=== PATIENT | female | born 1985 | race Caucasian/White ===

== ENCOUNTER 2016-05-22 22:22 | Emergency (ER) | payer OTHER ==
--- NOTE | 2016-05-23 00:07 | ED ORDER SUMMARY ---
..... Patient: MICHELLE HURTADO OrderSheet [facility] VisitID: [id number] [address] [place] [address] 31y, F Registration Date/Time: 05/22/2016 ORDER SHEET Weight: 56.6 kg Allergies: No Known Drug Allergy GENERAL ORDERS: Blood Culture (No) (N/A) Urgent (22:51 05/22/2016 HBivens A.R.N.P.) (Ack 22:55 JDeElena R.N.) (23:30 JRomanelli R.N.) CBC w Diff Urgent (22:51 05/22/2016 HBivens A.R.N.P.) (Ack 22:55 JDeElena R.N.) (22:59 JRomanelli R.N.) BMP Urgent (22:51 05/22/2016 HBivens A.R.N.P.) (Ack 22:55 JDeElena R.N.) (22:59 JRomanelli R.N.) Lactate, Serum Urgent (22:51 05/22/2016 HBivens A.R.N.P.) (Ack 22:55 JDeElena R.N.) (23:30 JRomanelli R.N.) MEDICATION ORDERS: K-Dur PO 40 meq (Do not crush or chew, NOW) (00:05 05/23/2016 HBivens A.R.N.P.) (0:53 JRomanelli R.N.) IV FLUIDS: Toradol IV 30 mg (NOW) (23:05 05/22/2016 HBivens A.R.N.P.) (1:19 JRomanelli R.N.) Ativan IV 2 mg (HIGH ALERT MEDICATION, NOW) (23:05 05/22/2016 HBivens A.R.N.P.) (23:32 JRomanelli R.N.) Ceftriaxone IV 1 gm/50mL (NOW) (23:05 05/22/2016 HBivens A.R.N.P.) (Cancelled: Other23:06 HBivens A.R.N.P.) IV Saline Lock (23:06 05/22/2016 JRomanelli R.N. verbal order read back to HBivens A.R.N.P.) (23:33 JRomanelli R.N.) IV NS : initial bolus 1000 mL (1000 mL/hr), then none - for X1 (NOW) (23:07 05/22/2016 HBivens A.R.N.P.) (Cancelled: Duplicate Order23:32 JRomanelli R.N.) Vancomycin IV 1 gm/200mL (NOW) (23:07 05/22/2016 HBivens A.R.N.P.) (0:56 JRomanelli R.N.) IV NS : initial bolus none -, then 1000 mL/hr (NOW) (23:08 05/22/2016 JRomanelli R.N. verbal order read back to HBivens A.R.N.P.) (23:46 JRomanelli R.N.) Ceftriaxone IV 1 gm/50mL (NOW) (23:40 05/22/2016 HBivens A.R.N.P.) (23:44 JRomanelli R.N.) ORDER SHEET NOTES: [Electronically signed by Francisco Lanza R.N. (01:49 05/23/2016)] [Electronically signed by Jess Roberts.R.N.P. (11:53 05/23/2016)] [Electronically locked/signed by Francisco Lanza R.N. (01:49 05/23/2016)]
--- NOTE | 2016-05-23 00:07 | ED CLINICAL REPORT ---
Clinical Report - Physicians/Mid Levels [facility] [address] [place] [address] 05/22/2016 22:23 Patient: MICHELLE HURTADO Time Seen: 2235; upon arrival, initial patient contact, initial documentation, patient care assumed. Arrived- Police present. Historian- patient. Evaluation limited noncompliance. History limited by poor cooperation, vague historian, intoxication and agitation. HISTORY OF PRESENT ILLNESS Chief Complaint: SKIN RASH and TENDER AREA. This started about 3 - 4 days ago and is still present. Not itchy or burning. It is described as painful. It has been located on the left hand. A cause has been identified (iv drug use). Similar symptoms previously: Frequently, as bad. Recent medical care: Not recently seen/assessed. REVIEW OF SYSTEMS No fever or difficulty breathing. She has had a sore throat. All systems otherwise negative, except as recorded above. PAST HISTORY See nurses notes. PROBLEMS: Mental Illness. Psychosis. Hypomagnesemia. Tonsillitis. Bipolar Disorder. Schizoaffective Disorder. Hep C treated with interferon. Substance Abuse. Hypoglycemia. Hypokalemia. Spontaneous (Miscarriage). Asthma. Anxiety Reaction. Sinusitis. Fever. Pharyngitis. --22:39 Francisco Lanza, R.N. ADDITIONAL SURGERIES: Appendectomy. --22:39 Francisco Lanza, R.N. SOCIAL HISTORY Heavy tobacco smoker. Occasional alcohol use. History of heavy IV drug use: heroin, marijuana. No recent travel. Is a local resident. FAMILY HISTORY Negative. ADDITIONAL NOTES The nursing notes have been reviewed with agreement regarding the chief complaint, HPI, ROS, PMH and patient medications and allergies. PHYSICAL EXAM Vital Signs: 05/22/2016 22:18 BP: 126/84. HR: 128. RR: 20. O2 saturation: 97%. Temp: 98.8 F. Pain level now: 7/10. Have been reviewed as abnormal and appear to be correct. Blood pressure normal. Tachycardic. Respiratory rate normal. Temperature normal. Oxygen saturation normal. Appearance: Alert. Oriented X3. No acute distress. Anxious. (pt extremely anxious, saying she wants to go home, she doesn't even want to stay for tx, talked pt into iv and blood work, as long as I didn't drug test her). Eyes: Pupils equal, round and reactive to light. Conjunctivae and eyelids normal. ENT: Ears normal. Nose normal. Pharynx normal. Neck: Neck supple. CVS: Normal heart rate and rhythm. Heart sounds normal. Respiratory: No respiratory distress. Breath sounds normal. Chest nontender. Abdomen: Nontender. No organomegaly. Skin: Skin warm and dry. Abnormal skin color. No rash. Normal skin turgor. Large area of cellulitis with tenderness, erythema and warmth to left hand (entire top of L hand including digits, and part of wrist). No lymphangitis. (multiple iv track dangelo noted on BUE). Extremities: Normal external inspection. Extremities nontender. Neuro: Oriented X 3. No motor deficit. No sensory deficit. LABS, X-RAYS, AND EKG Laboratory Tests: CBC w Diff: (KARRIE: 05/22/2016 22:50) ( MsgRcvd 05/22/2016 23:41) Final results Test Result Flag Units (Reference) WHITE BLOOD COUNT 27.3 *H K/uL (4.5-11.5) CRITICAL RESULTS CALLEDCalled to MARY 05/22/16 2314Were 2 patient identifiers used? YWas the result read back? Y RED BLOOD COUNT 4.47 M/uL (4.00-5.20) HEMOGLOBIN 13.2 gm/dL (12.0-16.0) HEMATOCRIT 38.8 % (36.0-46.0) MEAN CELL VOLUME 87 fL (80-100) MEAN CORPUSCULAR HGB 30 pg (26-34) MEAN CORPUSCULAR HGB CONC 34 g/dL (31-37) RED CELL DISTRIBUTION WIDTH 17.1 H % (11.6-14.8) PLATELET COUNT 377 K/uL (150-400) POLY % 82 H % (50-75) BAND % 0 % (0-8) LYMPH 12 L % (25-40) MONO 6 % (3-14) EOSINOPHIL % 0 % (0-4) BASOPHIL % 0 % (0-2) METAMYELOCYTE % 0 % (0-1) MYELOCYTE 0 % (0-1) OTHER CELL TYPE 0 Lactate, Serum: (KARRIE: 05/22/2016 23:00) ( ScgRcvd 05/22/2016 23:57) Final results Test Result Flag Units (Reference) LACTIC ACID 0.9 mmol/L (0.4-2.0) BMP: (KARRIE: 05/22/2016 22:50) ( MsgRcvd 05/22/2016 23:21) Final results Test Result Flag Units (Reference) GLUCOSE 101 mg/dL (70-110) BUN 17 mg/dL (7-18) CREATININE 1.1 mg/dL (0.6-1.3) Estimated GFR >60 mL/min Estimated GFR- >60 mL/min Note: Persistent reduction over 3 months in eGFR<60 mL/min/1.73 m2 defines CKD. Patients with eGFR values>=60 mL/min/1.73 m2 may also have CKD if evidence ofpersistent proteinuria. Additional information may be foundat www.kidney.org. SODIUM 141 mmol/L (136-145) POTASSIUM 3.1 L mmol/L (3.5-5.1) CHLORIDE 102 mmol/L (98-107) CARBON DIOXIDE 23 mmol/L (21-32) CALCIUM 8.9 mg/dL (8.5-10.1) . PROGRESS AND PROCEDURES Course of Care: 0. pt consistently coming out of room, pacing, anxious, demanding water and other stuff from staff, saying she is ready to go home, asking for klonopin and something for her nerves 2329. had discussion with pt re admit, pt refusing to stay for admission, doesn't want to stay for 2nd abx, encouraged to stay, pt again asking for klonopin 2349. pt again coming out of room, nurse assisting her back, encouraging to stay in room, pt almost pulling iv out by packing in room, pt still extremely anxious 0010. Dr Churchill at bedside assessing pt's hand, encouraging pt to stay, pt still refusing, pt was informed numerous times that she had bad infection, could lose the hand, or even could result if blood infection got worse, pt still refusing to stay, and claims she will return tomorrow for more abx, pt again asking for klonopin or something for her nerves 0020. area of erythema marked with skin pen, pt still refusing to stay, and asking how much longer for the abx to finish, she is ready to go, again asking for something for her nerves. Patient counseled in person regarding the patient's stable condition, diagnosis and need for admission. Differential Diagnosis: Other possible considerations: cellulitis, substance abuse, abscess, anxiety. Above considerations are based on history, physical exam and laboratory data. Differential diagnosis was discussed with patient. Disposition: Condition: good and stable. CLINICAL IMPRESSION Cellulitis of the left hand. Chronic substance abuse- marijuana, heroin with intoxication, delirium and anxiety. INSTRUCTIONS Warnings: Further evaluation is necessary in order to assess the possibility of serious illness. It is very important to follow up with a physician. GENERAL WARNINGS: Return or contact your physician immediately if your condition worsens or changes unexpectedly, if not improving as expected, or if other problems arise. Specifically return if problem worsens. Prescription Medications: Bactrim DS 800 mg / 160 mg: take 1 tablet orally every day for 10 days. No refill. Keflex 500 mg: take 1 capsule orally every 6 hours for 10 days. No refill. Motrin 800 mg tablets: take 1 tablet orally every 8 hours as needed for pain. Dispense thirty (30). No refills. Substitution is permissible. Follow-up: Follow up with your doctor tomorrow. Call for an appointment. Summary of care provided to patient. Understanding of the discharge instructions verbalized by patient. (Electronically signed by Jess Roberts A.R.N.P. 05/23/2016 11:53)
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
--- NOTE | 2016-05-23 00:07 | ED ORDER SUMMARY ---
..... Patient: MICHELLE HURTADO OrderSheet [facility] VisitID: [id number] [address] [place] [address] 31y, F Registration Date/Time: 05/22/2016 ORDER SHEET Weight: 56.6 kg Allergies: No Known Drug Allergy GENERAL ORDERS: Blood Culture (No) (N/A) Urgent (22:51 05/22/2016 HBivens A.R.N.P.) (Ack 22:55 JDeElena R.N.) (23:30 JRomanelli R.N.) CBC w Diff Urgent (22:51 05/22/2016 HBivens A.R.N.P.) (Ack 22:55 JDeElena R.N.) (22:59 JRomanelli R.N.) BMP Urgent (22:51 05/22/2016 HBivens A.R.N.P.) (Ack 22:55 JDeElena R.N.) (22:59 JRomanelli R.N.) Lactate, Serum Urgent (22:51 05/22/2016 HBivens A.R.N.P.) (Ack 22:55 JDeElena R.N.) (23:30 JRomanelli R.N.) MEDICATION ORDERS: K-Dur PO 40 meq (Do not crush or chew, NOW) (00:05 05/23/2016 HBivens A.R.N.P.) (0:53 JRomanelli R.N.) IV FLUIDS: Toradol IV 30 mg (NOW) (23:05 05/22/2016 HBivens A.R.N.P.) (1:19 JRomanelli R.N.) Ativan IV 2 mg (HIGH ALERT MEDICATION, NOW) (23:05 05/22/2016 HBivens A.R.N.P.) (23:32 JRomanelli R.N.) Ceftriaxone IV 1 gm/50mL (NOW) (23:05 05/22/2016 HBivens A.R.N.P.) (Cancelled: Other23:06 HBivens A.R.N.P.) IV Saline Lock (23:06 05/22/2016 JRomanelli R.N. verbal order read back to HBivens A.R.N.P.) (23:33 JRomanelli R.N.) IV NS : initial bolus 1000 mL (1000 mL/hr), then none - for X1 (NOW) (23:07 05/22/2016 HBivens A.R.N.P.) (Cancelled: Duplicate Order23:32 JRomanelli R.N.) Vancomycin IV 1 gm/200mL (NOW) (23:07 05/22/2016 HBivens A.R.N.P.) (0:56 JRomanelli R.N.) IV NS : initial bolus none -, then 1000 mL/hr (NOW) (23:08 05/22/2016 JRomanelli R.N. verbal order read back to HBivens A.R.N.P.) (23:46 JRomanelli R.N.) Ceftriaxone IV 1 gm/50mL (NOW) (23:40 05/22/2016 HBivens A.R.N.P.) (23:44 JRomanelli R.N.) ORDER SHEET NOTES: [Electronically signed by Francisco Lanza R.N. (01:49 05/23/2016)] [Electronically signed by Jess Roberts.R.N.P. (11:53 05/23/2016)] [Electronically locked/signed by Francisco Lanza R.N. (01:49 05/23/2016)]
--- NOTE | 2016-05-23 11:53 | ED DISCHARGE INSTRUCTIONS ---
Patient: MICHELLE HURTADO General Instructions [facility] VisitID: [id number] [place] [address] 31y, F Registration Date/Time: 05/22/2016 Cellulitis of the left hand. Chronic substance abuse- marijuana, heroin with intoxication, delirium and anxiety. INSTRUCTIONS Warnings: Further evaluation is necessary in order to assess the possibility of serious illness. It is very important to follow up with a physician. GENERAL WARNINGS: Return or contact your physician immediately if your condition worsens or changes unexpectedly, if not improving as expected, or if other problems arise. Specifically return if problem worsens. Prescription Medications: Bactrim DS 800 mg / 160 mg: take 1 tablet orally every day for 10 days. No refill. Keflex 500 mg: take 1 capsule orally every 6 hours for 10 days. No refill. Motrin 800 mg tablets: take 1 tablet orally every 8 hours as needed for pain. Dispense thirty (30). No refills. Substitution is permissible. Follow-up: Follow up with your doctor tomorrow. Call for an appointment. Summary of care provided to patient. Understanding of the discharge instructions verbalized by patient. ADDITIONAL INFORMATION Cellulitis You have an infection of the skin known as cellulitis. This usually starts with a scrape, cut, insect bite, blister or other opening in the skin which becomes infected. This is a serious condition. It must be watched closely to be sure the infection is not spreading. With antibiotic treatment, the size of the red area will gradually shrink in size until the skin returns to normal. This will take 7-10 days. The red area should never increase in size once the antibiotic medicine has been started. Occasionally, an infection will be resistant to one antibiotic and another one will have to be used. Home Care: 1) Limit the use of the affected part, since excess movement can cause the infection to spread. 2) If the infection is on your leg, walk as little as possible during the first few days of the treatment. Keep your leg elevated while sitting. This will reduce swelling. 3) Take all of the antibiotic medicine exactly as directed until it is gone. Be careful not to miss any doses, especially during the first seven days. Follow Up with your doctor or this facility as directed. Check the infected area daily for the warning signs listed below. Get Prompt Medical Attention if any of the following occur: -- Spreading area of redness -- Increasing swelling or pain -- Appearance of pus or drainage -- Fever over 100.4 F (38.0 C) oral, or over 101.4 F (38.6 C) rectal, after two days on antibiotics Staph Infection (MRSA) "Staph" is the short name for the common bacteria called "staphylococcus aureus". Staph bacteria are often present on the skin without causing an infection. If it gets under the skin an infection occurs. This causes redness, tenderness, swelling and sometimes fluid drainage. MRSA stands for "Methicillin-Resistant Staph Aureus". Unlike a common staph infection, MRSA bacteria are resistant to the usual antibiotics and harder to treat. Also, MRSA is more toxic than common staph bacteria. It can spread quickly throughout the body and cause a life-threatening illness. MRSA is spread to others by direct physical contact with the bacteria. MRSA can also be transmitted from items contaminated by a person who has the bacteria, such as bandages, towels, bed sheets, or sports equipment. It is not spread through the air. Once you have a MRSA skin infection, you are at risk of having it recur in the future. If MRSA infection is suspected, the doctor may take a wound culture to confirm the diagnosis. Any abscess will be drained. One or sometimes two antibiotics that work against MRSA will be prescribed. Home Care: 1) Take any antibiotics prescribed exactly as directed until they are gone. 2) Follow the same washing procedures as outlined for Household Members below. 3) Keep draining wounds covered with clean, dry bandages. Change dressings as they become soiled. 4) You and those in contact with you should wash their hands frequently with soap and warm water or use an alcohol-based hand pharmacist in charge. Do this after each time you change the bandage or touch the wound. 5) Avoid sharing personal items such as towels, washcloths, razors, clothing, or uniforms. Wash soiled sheets, towels or clothes in hot water with laundry detergent. Use an automatic clothes dryer set on high to kill any remaining bacteria. 6) Remove any artificial nails and nail maltese. 7) If you use a gym, wipe down equipment before and after each use. Treatment Of Household Members If you have been diagnosed with possible MRSA infection, those living with you are at higher risk of carrying the bacteria on their skin or in their nose, even if there is no sign of infection. Bacteria must be removed from the skin of all household members (including you) at the same time, so that it is not passed back and forth. Advise them to remove the bacteria as follows: Wash your whole body (scalp to toes) daily for five days with Hibiclens (chlorhexidine). Scrub fingernails with a brush for one minute twice a day. If any skin infections are present (boils, abscess, infected cut) these must be treated by a doctor. Washing alone will not treat a MRSA infection. Clean counter tops and children's toys; do not share personal items such as toothbrush and razors. It is okay to share glasses, plates, utensils. If antibiotic ointment was prescribed use it as directed. Follow Up with your doctor or as advised by our staff. If a wound culture was taken, call as directed in two days to obtain the results. If the culture result is positive for MRSA, tell medical personnel in the future that you were treated for this type of infection. Get Prompt Medical Attention if any of the following occur: -- Increasing redness, swelling or pain -- Red streaks in the skin around the wound -- Weakness or dizziness -- New appearance of pus or drainage from the wound -- New fever over 100.4 F (38.0 C) Drug Abuse Use and abuse of such drugs as marijuana, amphetamines (speed, crank), cocaine, heroin or prescription pain medicines (Vicodin, codeine), sedatives and sleeping pills (Valium, Klonopin), PCP, mescaline and LSD may lead to addiction or dependence. Once this occurs, you are at greater risk for any of the following: Craving for the drug and unable to stop using the drug even though you think you want to stop (psychological dependence) Drug withdrawal symptoms if you stop taking the drug (physical dependence) Loss of your job or your family Arrest, conviction and half-way sentence for possession of an illegal substance or for driving under the influence of such a substance Accidental injuries to yourself or others while you are under the influence of the drug (in a car or at home). HIV infection (much greater risk if you use IV drugs) Other sexually transmitted diseases (herpes, chlamydia, gonorrhea and others) Severe and fatal infection of the heart valves (if you use IV drugs) Stroke, heart attack, hepatitis B or C, kidney failure from overdose Home Care: Admit you have a drug problem. Ask for help from your family and close friends. Seek professional help. This could be in the form of individual psychotherapy or counseling or an outpatient, inpatient, or residential drug treatment program. Join a self-help group for drug abuse. Avoid friends who abuse drugs themselves or tempt you to continue abusing drugs. Eat a balanced diet and begin a regular exercise program. Follow Up with your doctor or as advised by our staff. Contact one of the resources below for help. National [place] on Alcoholism and Drug Dependence www.ncadd.org 729-431-FEFS Narcotics Anonymous www.na.org 909-702-4266 National Alcohol and Substance Abuse Information Center (for referral to treatment programs) www.Glopho 797-420-1908 Get Prompt Medical Attention if any of the following occur: Agitation, anxiety, unable to sleep Unintended weight loss (more than 10 to 15 pounds over 3 months) Seizure Chest pain Fever of 100.4F (38C) or higher, or as directed by your healthcare provider Excess drowsiness or inability to be awakened Shortness of breath Slow breathing under 8 breaths per minute Cough with colored sputum Redness, swelling or tenderness at an injection site Sulfamethoxazole, Trimethoprim Oral tablet What is this medicine? SULFAMETHOXAZOLE; TRIMETHOPRIM or SMX-TMP (suhl fuh meth OK justin zohl; trye METH oh prim) is a combination of a sulfonamide antibiotic and a second antibiotic, trimethoprim. It is used to treat or prevent certain kinds of bacterial infections. It will not work for colds, flu, or other viral infections. How should I use this medicine? Take this medicine by mouth with a full glass of water. Follow the directions on the prescription label. Take your medicine at regular intervals. Do not take it more often than directed. Do not skip doses or stop your medicine early. Talk to your soda dispenser regarding the use of this medicine in children. Special care may be needed. This medicine has been used in children as young as 2 months of age. What side effects may I notice from receiving this medicine? Side effects that you should report to your doctor or health career and guidance counselor as soon as possible: allergic reactions like skin rash or hives, swelling of the face, lips, or tongue breathing problems fever or chills, sore throat irregular heartbeat, chest pain joint or muscle pain pain or difficulty passing urine red pinpoint spots on skin redness, blistering, peeling or loosening of the skin, including inside the mouth unusual bleeding or bruising unusually weak or tired yellowing of the eyes or skin Side effects that usually do not require medical attention (report to your doctor or health career and guidance counselor if they continue or are bothersome): diarrhea dizziness headache loss of appetite nausea, vomiting nervousness What may interact with this medicine? Do not take this medicine with any of the following medications: aminobenzoate potassium dofetilide metronidazole This medicine may also interact with the following medications: TK inhibitors like benazepril, enalapril, lisinopril, and ramipril cyclosporine digoxin diuretics indomethacin medicines for diabetes methenamine methotrexate phenytoin potassium supplements pyrimethamine sulfinpyrazone tricyclic antidepressants warfarin What if I miss a dose? If you miss a dose, take it as soon as you can. If it is almost time for your next dose, take only that dose. Do not take double or extra doses. Where should I keep my medicine? Keep out of the reach of children. Store at room temperature between 20 to 25 degrees C (68 to 77 degrees F). Protect from light. Throw away any unused medicine after the expiration date. What should I tell my health care provider before I take this medicine? They need to know if you have any of these conditions: anemia asthma being treated with anticonvulsants if you frequently drink alcohol containing drinks kidney disease liver disease low level of folic acid or sjfxybc-[id number] dehydrogenase poor nutrition or malabsorption porphyria severe allergies thyroid disorder an unusual or allergic reaction to sulfamethoxazole, trimethoprim, sulfa drugs, other medicines, foods, dyes, or preservatives or trying to get breast-feeding What should I watch for while using this medicine? Tell your doctor or health career and guidance counselor if your symptoms do not improve. Drink several glasses of water a day to reduce the risk of kidney problems. Do not treat diarrhea with over the counter products. Contact your doctor if you have diarrhea that lasts more than 2 days or if it is severe and watery. This medicine can make you more sensitive to the sun. Keep out of the sun. If you cannot avoid being in the sun, wear protective clothing and use a sunscreen. Do not use sun lamps or tanning beds/booths. Cephalexin Monohydrate Oral tablet What is this medicine? CEPHALEXIN (sef a JAKE in) is a cephalosporin antibiotic. It is used to treat certain kinds of bacterial infections It will not work for colds, flu, or other viral infections. How should I use this medicine? Take this medicine by mouth with a full glass of water. Follow the directions on the prescription label. This medicine can be taken with or without food. Take your medicine at regular intervals. Do not take your medicine more often than directed. Take all of your medicine as directed even if you think you are better. Do not skip doses or stop your medicine early. Talk to your soda dispenser regarding the use of this medicine in children. While this drug may be prescribed for selected conditions, precautions do apply. What side effects may I notice from receiving this medicine? Side effects that you should report to your doctor or health career and guidance counselor as soon as possible: allergic reactions like skin rash, itching or hives, swelling of the face, lips, or tongue breathing problems pain or trouble passing urine redness, blistering, peeling or loosening of the skin, including inside the mouth severe or watery diarrhea unusually weak or tired yellowing of the eyes, skin Side effects that usually do not require medical attention (report to your doctor or health career and guidance counselor if they continue or are bothersome): gas or heartburn genital or anal irritation headache joint or muscle pain nausea, vomiting What may interact with this medicine? probenecid some other antibiotics What if I miss a dose? If you miss a dose, take it as soon as you can. If it is almost time for your next dose, take only that dose. Do not take double or extra doses. There should be at least 4 to 6 hours between doses. Where should I keep my medicine? Keep out of the reach of children. Store at room temperature between 59 and 86 degrees F (15 and 30 degrees C). Throw away any unused medicine after the expiration date. What should I tell my health care provider before I take this medicine? They need to know if you have any of these conditions: kidney disease stomach or intestine problems, especially colitis an unusual or allergic reaction to cephalexin, other cephalosporins, penicillins, other antibiotics, medicines, foods, dyes or preservatives or trying to get breast-feeding What should I watch for while using this medicine? Tell your doctor or health career and guidance counselor if your symptoms do not begin to improve in a few days. Do not treat diarrhea with over the counter products. Contact your doctor if you have diarrhea that lasts more than 2 days or if it is severe and watery. If you have diabetes, you may get a false-positive result for sugar in your urine. Check with your doctor or health career and guidance counselor. Ibuprofen Oral tablet What is this medicine? IBUPROFEN (eye BYOO proe fen) is a non-steroidal anti-inflammatory drug (NSAID). It is used for dental pain, fever, headaches or migraines, osteoarthritis, rheumatoid arthritis, or painful monthly periods. It can also relieve minor aches and pains caused by a cold, flu, or sore throat. How should I use this medicine? Take this medicine by mouth with a glass of water. Follow the directions on the prescription label. Take this medicine with food if your stomach gets upset. Try to not lie down for at least 10 minutes after you take the medicine. Take your medicine at regular intervals. Do not take your medicine more often than directed. A special MedGuide will be given to you by the pharmacist with each prescription and refill. Be sure to read this information carefully each time. Talk to your soda dispenser regarding the use of this medicine in children. Special care may be needed. What side effects may I notice from receiving this medicine? Side effects that you should report to your doctor or health career and guidance counselor as soon as possible: allergic reactions like skin rash, itching or hives, swelling of the face, lips, or tongue black or bloody stools, blood in the urine or in vomit breathing problems changes in vision chest pain general ill feeling or flu-like symptoms nausea or vomiting redness, blistering, peeling or loosening of the skin, including inside the mouth slurred speech or weakness on one side of the body stomach pain unexplained weight gain or swelling unusually weak or tired yellowing of eyes or skin Side effects that usually do not require medical attention (report to your doctor or health career and guidance counselor if they continue or are bothersome): constipation or diarrhea dizziness gas or heartburn stomach upset What may interact with this medicine? Do not take this medicine with any of the following medications: cidofovir ketorolac methotrexate pemetrexed This medicine may also interact with the following medications: alcohol aspirin diuretics lithium other drugs for inflammation like prednisone warfarin What if I miss a dose? If you miss a dose, take it as soon as you can. If it is almost time for your next dose, take only that dose. Do not take double or extra doses. Where should I keep my medicine? Keep out of the reach of children. Store at room temperature between 15 and 30 degrees C (59 and 86 degrees F). Keep container tightly closed. Throw away any unused medicine after the expiration date. What should I tell my health care provider before I take this medicine? They need to know if you have any of these conditions: asthma cigarette smoker drink more than 3 alcohol containing drinks a day heart disease or circulation problems such as heart failure or leg edema (fluid retention) high blood pressure kidney disease liver disease stomach bleeding or ulcers an unusual or allergic reaction to ibuprofen, aspirin, other NSAIDS, other medicines, foods, dyes, or preservatives or trying to get breast-feeding What should I watch for while using this medicine? Tell your doctor or healthcare professional if your symptoms do not start to get better or if they get worse. This medicine does not prevent heart attack or stroke. In fact, this medicine may increase the chance of a heart attack or stroke. The chance may increase with longer use of this medicine and in people who have heart disease. If you take aspirin to prevent heart attack or stroke, talk with your doctor or health career and guidance counselor. Do not take other medicines that contain aspirin, ibuprofen, or naproxen with this medicine. Side effects such as stomach upset, nausea, or ulcers may be more likely to occur. Many medicines available without a prescription should not be taken with this medicine. This medicine can cause ulcers and bleeding in the stomach and intestines at any time during treatment. Ulcers and bleeding can happen without warning symptoms and can cause . To reduce your risk, do not smoke cigarettes or drink alcohol while you are taking this medicine. You may get drowsy or dizzy. Do not drive, use machinery, or do anything that needs mental alertness until you know how this medicine affects you. Do not stand or sit up quickly, especially if you are an older patient. This reduces the risk of dizzy or fainting spells. This medicine can cause you to bleed more easily. Try to avoid damage to your teeth and gums when you brush or floss your teeth. You have been given the following additional information: Cellulitis MRSA Skin Infection, Suspected Or Confirmed Drug Abuse Sulfamethoxazole, Trimethoprim Oral tablet Cephalexin Monohydrate Oral tablet Ibuprofen Oral tablet (Electronically signed by Jess Roberts A.R.N.P. 05/23/2016 11:53)
--- NOTE | 2016-05-23 11:54 | ED MAR SUMMARY ---
..... Medication Administration Record [facility] [address] [place] [address] Patient: MICHELLE HURTADO Visit ID: [id number] 31y, F Weight: 56.6 kg Height/Length: 61 in BMI: 23.6 ALLERGIES: No Known Drug Allergy Given 23:22 05/22/2016 Francisco Lanza R.N. Medication Administered: ATIVAN [IVP] (LORAZEPAM), Dose: 2 mg IVP over 2 minute(s), Site: #1 right upper arm. Medication Ordered: Ativan IV 2 mg (HIGH ALERT MEDICATION, NOW). Given 23:30 05/22/2016 Francisco Lanza R.N. Medication Administered: TORADOL [IVP], Dose: 30 mg IVP over 2 minute(s), Site: #1 right upper arm. Medication Ordered: Toradol IV 30 mg (NOW). Start 23:31 05/22/2016 Francisco Lanza R.N. Medication Administered: IV NS (SALINE), Dose: IV Fluids over 60 minute(s), Rate: 1000 mL/hr, Dispensed: 1000 mL bag, Site: #1 right upper arm. Medication Ordered: IV NS : initial bolus none -, then 1000 mL/hr (NOW). Start 23:34 05/22/2016 Francisco Lanza R.N., Stop 23:59 05/22/2016 Francisco Lanza R.N. Medication Administered: CEFTRIAXONE [IVPB], Dose: 1 gm IVPB over 2 minute(s), Rate: 100 mL/hr, Dispensed: 50 mL bag, Site: #1 right upper arm. Medication Ordered: Ceftriaxone IV 1 gm/50mL (NOW). Start 00:01 05/23/2016 Francisco Lanza R.N., Stop 01:07 05/23/2016 Luis F Griffith R.N. Medication Administered: VANCOMYCIN [IVPB], Dose: 1 gm IVPB over 60 minute(s), Rate: 200 mL/hr, Dispensed: 200 mL bag, Site: #1 right upper arm. Medication Ordered: Vancomycin IV 1 gm/200mL (NOW). Start 00:05 05/23/2016 Francisco Lanza R.N. Medication Administered: IV NS (SALINE), Dose: IV Fluids over 60 minute(s), Rate: 250 mL/hr, Dispensed: 250 mL bag, Site: #1 right upper arm. Medication Ordered: IV NS : initial bolus none -, then 1000 mL/hr (NOW). Given 00:48 05/23/2016 Francisco Lanza R.N. Medication Administered: K-DUR [PO] (POTASSIUM CHLORIDE OSCAR ER), Dose: 40 meq Tablets PO. Medication Ordered: K-Dur PO 40 meq (Do not crush or chew, NOW).
--- NOTE | 2016-05-23 11:54 | ED MAR SUMMARY ---
..... Medication Administration Record [facility] [address] [place] [address] Patient: MICHELLE HURTADO Visit ID: [id number] 31y, F Weight: 56.6 kg Height/Length: 61 in BMI: 23.6 ALLERGIES: No Known Drug Allergy Given 23:22 05/22/2016 Francisco Lanza R.N. Medication Administered: ATIVAN [IVP] (LORAZEPAM), Dose: 2 mg IVP over 2 minute(s), Site: #1 right upper arm. Medication Ordered: Ativan IV 2 mg (HIGH ALERT MEDICATION, NOW). Given 23:30 05/22/2016 Francisco Lanza R.N. Medication Administered: TORADOL [IVP], Dose: 30 mg IVP over 2 minute(s), Site: #1 right upper arm. Medication Ordered: Toradol IV 30 mg (NOW). Start 23:31 05/22/2016 Francisco Lanza R.N. Medication Administered: IV NS (SALINE), Dose: IV Fluids over 60 minute(s), Rate: 1000 mL/hr, Dispensed: 1000 mL bag, Site: #1 right upper arm. Medication Ordered: IV NS : initial bolus none -, then 1000 mL/hr (NOW). Start 23:34 05/22/2016 Francisco Lanza R.N., Stop 23:59 05/22/2016 Francisco Lanza R.N. Medication Administered: CEFTRIAXONE [IVPB], Dose: 1 gm IVPB over 2 minute(s), Rate: 100 mL/hr, Dispensed: 50 mL bag, Site: #1 right upper arm. Medication Ordered: Ceftriaxone IV 1 gm/50mL (NOW). Start 00:01 05/23/2016 Francisco Lanza R.N., Stop 01:07 05/23/2016 Luis F Griffith R.N. Medication Administered: VANCOMYCIN [IVPB], Dose: 1 gm IVPB over 60 minute(s), Rate: 200 mL/hr, Dispensed: 200 mL bag, Site: #1 right upper arm. Medication Ordered: Vancomycin IV 1 gm/200mL (NOW). Start 00:05 05/23/2016 Francisco Lanza R.N. Medication Administered: IV NS (SALINE), Dose: IV Fluids over 60 minute(s), Rate: 250 mL/hr, Dispensed: 250 mL bag, Site: #1 right upper arm. Medication Ordered: IV NS : initial bolus none -, then 1000 mL/hr (NOW). Given 00:48 05/23/2016 Francisco Lanza R.N. Medication Administered: K-DUR [PO] (POTASSIUM CHLORIDE OSCAR ER), Dose: 40 meq Tablets PO. Medication Ordered: K-Dur PO 40 meq (Do not crush or chew, NOW).
--- NOTE | 2016-05-23 11:54 | ED MED RECONCILIATION SUMMARY ---
Patient: MICHELLE HURTADO Medication Reconciliation Report [facility] VisitID: [id number] [address] [place] [address] 31y, F Registration Date/Time: 05/22/2016 Weight: 56.6 kg Height/Length: 61 in. BMI: 23.6 ALLERGIES: No Known Drug Allergy The patient's Home Medications are listed below: THE FOLLOWING MEDICATIONS NEED TO BE RECONCILED: HydrOXYzine HCl Oral 25 mg KlonoPIN Oral Neurontin Oral 300 mg, 3x a day SEROquel Oral 300 mg, at bedtime The source(s) of the original Home Medication information: patient The following Medications were given to the patient in the Emergency Department: Ativan [IVP] IVP 2 mg, administered: 05/22/2016 11:22:00 PM Ceftriaxone [IVPB] IVPB bolus 0, then 1 gm 100 mL/hr, administered: 05/22/2016 11:34:00 PM IV NS IV Fluids bolus 0, then 1000 mL/hr, administered: 05/22/2016 11:31:00 PM IV NS IV Fluids bolus 0, then 250 mL/hr, administered: 05/23/2016 12:05:00 AM K-DUR [PO] PO 40 meq, administered: 05/23/2016 12:48:00 AM Vancomycin [IVPB] IVPB bolus 0, then 1 gm 200 mL/hr, administered: 05/23/2016 12:01:00 AM Toradol [IVP] IVP 30 mg, administered: 05/22/2016 11:30:00 PM The following Medications were prescribed to the patient: Bactrim DS 800 mg / 160 mg: take 1 tablet orally every day for 10 days. No refill. -- Jess Roberts A.R.N.P. Keflex 500 mg: take 1 capsule orally every 6 hours for 10 days. No refill. -- Jess Roberts A.R.N.P. Motrin 800 mg tablets: take 1 tablet orally every 8 hours as needed for pain. Dispense thirty (30). No refills. Substitution is permissible. -- Jess Roberts A.R.N.P.
--- NOTE | 2016-05-23 11:54 | ED MED RECONCILIATION SUMMARY ---
Patient: MICHELLE HURTADO Medication Reconciliation Report [facility] VisitID: [id number] [address] [place] [address] 31y, F Registration Date/Time: 05/22/2016 Weight: 56.6 kg Height/Length: 61 in. BMI: 23.6 ALLERGIES: No Known Drug Allergy The patient's Home Medications are listed below: THE FOLLOWING MEDICATIONS NEED TO BE RECONCILED: HydrOXYzine HCl Oral 25 mg KlonoPIN Oral Neurontin Oral 300 mg, 3x a day SEROquel Oral 300 mg, at bedtime The source(s) of the original Home Medication information: patient The following Medications were given to the patient in the Emergency Department: Ativan [IVP] IVP 2 mg, administered: 05/22/2016 11:22:00 PM Ceftriaxone [IVPB] IVPB bolus 0, then 1 gm 100 mL/hr, administered: 05/22/2016 11:34:00 PM IV NS IV Fluids bolus 0, then 1000 mL/hr, administered: 05/22/2016 11:31:00 PM IV NS IV Fluids bolus 0, then 250 mL/hr, administered: 05/23/2016 12:05:00 AM K-DUR [PO] PO 40 meq, administered: 05/23/2016 12:48:00 AM Vancomycin [IVPB] IVPB bolus 0, then 1 gm 200 mL/hr, administered: 05/23/2016 12:01:00 AM Toradol [IVP] IVP 30 mg, administered: 05/22/2016 11:30:00 PM The following Medications were prescribed to the patient: Bactrim DS 800 mg / 160 mg: take 1 tablet orally every day for 10 days. No refill. -- Jess Roberts A.R.N.P. Keflex 500 mg: take 1 capsule orally every 6 hours for 10 days. No refill. -- Jess Roberts A.R.N.P. Motrin 800 mg tablets: take 1 tablet orally every 8 hours as needed for pain. Dispense thirty (30). No refills. Substitution is permissible. -- Jess Roberts A.R.N.P.
== END 2016-05-23 01:10 | disposition home or self-care (01) ==
LOC: ED SRH 22:22
DX: L03.114 Cellulitis of left upper limb (principal); F11.121 Opioid abuse with intoxication delirium; F11.188 Opioid abuse with other opioid-induced disorder; F12.10 Cannabis abuse, uncomplicated; F17.210 Nicotine dependence, cigarettes, uncomplicated
CPT/HCPCS: 90047; 90065; 91643; 92031; 95059

== ENCOUNTER 2016-06-01 07:13 | Emergency (ER) | payer OTHER ==
--- NOTE | 2016-06-02 03:30 | ED ORDER SUMMARY ---
..... Patient: MICHELLE HURTADO OrderSheet [facility] VisitID: [id number] [place] [address] 31y, F Registration Date/Time: 06/01/2016 ORDER SHEET Weight: 54.4 kg (estimated) Allergies: No Known Drug Allergy GENERAL ORDERS: - (four point restraints) (07:30 [facility]01[facility]2016 [facility] (7:50 SBalde R.N.) (Ack 7:50 LNations ER Tech1) CBC w Diff Urgent (07:06/01/2016 [facility] (Ack 7:50 LNations ER Tech1) (8:38 SBalde R.N.) CMP Urgent (:06/01/2016 [facility] (Ack 7:50 LNations ER Tech1) (8:38 SBalde R.N.) UA-Culture if indicated Urgent (:06/01/2016 [facility] (Ack 7:50 LNations ER Tech1) (8:38 SBalde R.N.) Urine Urgent (07:06/01/2016 [facility] (Ack 7:50 LNations ER Tech1) (8:38 SBalde R.N.) Urine Drug Screen Urgent (07:06/01/2016 [facility]) (Ack 7:50 LNations ER Tech1) (8:38 SBalde R.N.) BNP Urgent (07:06/01/2016 PHalchinson DO) (Ack 7:51 LNations ER Tech1) (8:38 SBalde R.N.) PT with INR Urgent (07:06/01/2016 [facility]) (Ack 7:51 LNations ER Tech1) (8:38 SBalde R.N.) Ethyl Alcohol Urgent (10:54 06/01/2016 [facility] (Ack 10:57 LNations ER Tech1) (11:41 LNations ER Tech1) Diet (Please order in [employer]) (Regular Diet) (12:28 06/01/2016 LNations ER Tech1 verbal order read back to Adrienne Light) (12:30 LNations ER Tech1) EKG - ER Stat (17:39 06/01/2016 Adrienne Light) (17:49 NHouse ER Tech1) Magnesium Urgent (21:22 06/01/2016 Duane WARREN) (21:26 [facility] ER Ankle Patch Molder) Blood Culture (No) (N/A) (reportedly she did not fill her prescription) Urgent (23:10 06/01/2016 Duane WARREN) (23:32 [facility] ER Ankle Patch Molder) MEDICATION ORDERS: ZyPREXA Zydis ODT PO 5 mg (NOW) (08:40 06/01/2016 Opal BALBUENA) (8:42 SBalde R.N.) Clindamycin PO 300 mg (NOW) (12:23 06/01/2016 Adrienne Light) (12:41 SBalde R.N.) Haldol IM 5 mg (HIGH ALERT MEDICATION, NOW) (12:55 06/01/2016 Adrienne Light) (Ack 13:18 SBalde R.N.) (18:18 SBalde R.N.) Ativan IM 2 mg (HIGH ALERT MEDICATION, NOW) (17:39 06/01/2016 Adrienne Light) (18:24 SBalde R.N.) Bactrim DS PO (Tablet 800-160 mg) 1 tab (NOW) (03:25 06/02/2016 Duane WARREN) (Ack 3:36 JQuivey R.N.) (3:58 JQuivey R.N.) IV FLUIDS: IV NS : initial bolus 1000 mL (1000 mL/hr), then 200 mL/hr for X5 (NOW) (07:29 06/01/2016 Opal BALBUENA) (Ack 7:50 SBalde R.N.) (Cancelled: Unable to obtain IV access 3:08 JQuivey R.N.) ORDER SHEET NOTES: [Electronically signed by Francisco Che R.N. (04:54 06/02/2016)] [Electronically signed by Polo Hernandez MD (11:49 06/10/2016)] [Electronically locked/signed by Francisco Che R.N. (04:54 06/02/2016)]
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
--- NOTE | 2016-06-02 03:30 | ED ORDER SUMMARY ---
..... Patient: MICHELLE HURTADO OrderSheet [facility] VisitID: [id number] [place] [address] 31y, F Registration Date/Time: 06/01/2016 ORDER SHEET Weight: 54.4 kg (estimated) Allergies: No Known Drug Allergy GENERAL ORDERS: - (four point restraints) (07:30 [facility]2016 [facility] (7:50 SBalde R.N.) (Ack 7:50 LNations ER Tech1) CBC w Diff Urgent (07:06/01/2016 [facility] (Ack 7:50 LNations ER Tech1) (8:38 SBalde R.N.) [facility] (Ack 7:50 LNations ER Tech1) (8:38 SBalde R.N.) UA-Culture if indicated Urgent (:06/01/2016 [facility] (Ack 7:50 LNations ER Tech1) (8:38 SBalde R.N.) Urine Urgent (07:06/01/2016 [facility]) (Ack 7:50 LNations ER Tech1) (8:38 SBalde R.N.) Urine Drug Screen Urgent (07:06/01/2016 [facility]) (Ack 7:50 LNations ER Tech1) (8:38 SBalde R.N.) BNP Urgent (07:06/01/2016 PHpachinson DO) (Ack 7:51 LNations ER Tech1) (8:38 SBalde R.N.) PT with INR Urgent (07:06/01/2016 [facility] (Ack 7:51 LNations ER Tech1) (8:38 SBalde R.N.) Ethyl Alcohol Urgent (10:54 06/01/2016 [facility]) (Ack 10:57 LNations ER Tech1) (11:41 LNations ER Tech1) Diet (Please order in [employer]) (Regular Diet) (12:28 06/01/2016 LNations ER Tech1 verbal order read back to Adrienne Light) (12:30 LNations ER Tech1) EKG - ER Stat (17:39 06/01/2016 Adrienne Light) (17:49 NHouse ER Tech1) Magnesium Urgent (21:22 06/01/2016 Duane WARREN) (21:26 [facility] ER Welding Machine Operator Electron Beam) Blood Culture (No) (N/A) (reportedly she did not fill her prescription) Urgent (23:10 06/01/2016 Duane WARREN) (23:32 [facility] ER Welding Machine Operator Electron Beam) MEDICATION ORDERS: ZyPREXA Zydis ODT PO 5 mg (NOW) (08:40 06/01/2016 Opal BALBUENA) (8:42 SBalde R.N.) Clindamycin PO 300 mg (NOW) (12:23 06/01/2016 Adrienne Light) (12:41 SBalde R.N.) Haldol IM 5 mg (HIGH ALERT MEDICATION, NOW) (12:55 06/01/2016 Adrienne Light) (Ack 13:18 SBalde R.N.) (18:18 SBalde R.N.) Ativan IM 2 mg (HIGH ALERT MEDICATION, NOW) (17:39 06/01/2016 Adrienne Light) (18:24 SBalde R.N.) Bactrim DS PO (Tablet 800-160 mg) 1 tab (NOW) (03:25 06/02/2016 Duane WARREN) (Ack 3:36 JQuivey R.N.) (3:58 JQuivey R.N.) IV FLUIDS: IV NS : initial bolus 1000 mL (1000 mL/hr), then 200 mL/hr for X5 (NOW) (07:29 06/01/2016 Opal BALBUENA) (Ack 7:50 SBalde R.N.) (Cancelled: Unable to obtain IV access 3:08 JQuivey R.N.) ORDER SHEET NOTES: [Electronically signed by Francisco Che R.N. (04:54 06/02/2016)] [Electronically signed by Polo Hernandez MD (11:49 06/10/2016)] [Electronically locked/signed by Francisco Che R.N. (04:54 06/02/2016)]
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
--- NOTE | 2016-06-10 11:49 | ED DISCHARGE INSTRUCTIONS ---
Patient: MICHELLE HURTADO General Instructions [facility] VisitID: [id number] [address], [place] [address] 31y, F Registration Date/Time: 06/01/2016 Adverse drug reaction. (QT prolongation likely due to haloperidol). 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 Abnormal liver function test: AST/SGOT, ALT/SGPT and alkaline phosphatase. Mild leukocytosis. No bandemia. Cellulitis of the left hand. INSTRUCTIONS Stay with responsible adult family member (or other responsible adult). Warnings: Further evaluation is necessary. GENERAL WARNINGS: Return or contact your physician immediately if your condition worsens or changes unexpectedly, if not improving as expected, or if other problems arise. Your Current Medications: CONTINUE TAKING THE FOLLOWING MEDICATIONS: HydrOXYzine HCl Oral : 25 mg, prn. KlonoPIN Oral. Neurontin Oral : 300 mg 3x a day. SEROquel Oral : 300 mg at bedtime. Prescription Medications: Bactrim DS 800 mg / 160 mg: take 1 tablet orally every 12 hours for 10 days. No refill. Substitution is permissible. Understanding of the discharge instructions verbalized by patient. Follow-up with: [facility], , , [address], [place], [id number] Follow up tomorrow. Call for the next available appointment. ADDITIONAL INFORMATION Cellulitis You have an infection of the skin known as cellulitis. This usually starts with a scrape, cut, insect bite, blister or other opening in the skin which becomes infected. This is a serious condition. It must be watched closely to be sure the infection is not spreading. With antibiotic treatment, the size of the red area will gradually shrink in size until the skin returns to normal. This will take 7-10 days. The red area should never increase in size once the antibiotic medicine has been started. Occasionally, an infection will be resistant to one antibiotic and another one will have to be used. Home Care: 1) Limit the use of the affected part, since excess movement can cause the infection to spread. 2) If the infection is on your leg, walk as little as possible during the first few days of the treatment. Keep your leg elevated while sitting. This will reduce swelling. 3) Take all of the antibiotic medicine exactly as directed until it is gone. Be careful not to miss any doses, especially during the first seven days. Follow Up with your doctor or this facility as directed. Check the infected area daily for the warning signs listed below. Get Prompt Medical Attention if any of the following occur: -- Spreading area of redness -- Increasing swelling or pain -- Appearance of pus or drainage -- Fever over 100.4 F (38.0 C) oral, or over 101.4 F (38.6 C) rectal, after two days on antibiotics Sulfamethoxazole, Trimethoprim Oral tablet What is this medicine? SULFAMETHOXAZOLE; TRIMETHOPRIM or SMX-TMP (suhl fuh meth OK justin zohl; trye METH oh prim) is a combination of a sulfonamide antibiotic and a second antibiotic, trimethoprim. It is used to treat or prevent certain kinds of bacterial infections. It will not work for colds, flu, or other viral infections. How should I use this medicine? Take this medicine by mouth with a full glass of water. Follow the directions on the prescription label. Take your medicine at regular intervals. Do not take it more often than directed. Do not skip doses or stop your medicine early. Talk to your manager r d regarding the use of this medicine in children. Special care may be needed. This medicine has been used in children as young as 2 months of age. What side effects may I notice from receiving this medicine? Side effects that you should report to your doctor or health chronic care nurse as soon as possible: allergic reactions like skin rash or hives, swelling of the face, lips, or tongue breathing problems fever or chills, sore throat irregular heartbeat, chest pain joint or muscle pain pain or difficulty passing urine red pinpoint spots on skin redness, blistering, peeling or loosening of the skin, including inside the mouth unusual bleeding or bruising unusually weak or tired yellowing of the eyes or skin Side effects that usually do not require medical attention (report to your doctor or health chronic care nurse if they continue or are bothersome): diarrhea dizziness headache loss of appetite nausea, vomiting nervousness What may interact with this medicine? Do not take this medicine with any of the following medications: aminobenzoate potassium dofetilide metronidazole This medicine may also interact with the following medications: TK inhibitors like benazepril, enalapril, lisinopril, and ramipril cyclosporine digoxin diuretics indomethacin medicines for diabetes methenamine methotrexate phenytoin potassium supplements pyrimethamine sulfinpyrazone tricyclic antidepressants warfarin What if I miss a dose? If you miss a dose, take it as soon as you can. If it is almost time for your next dose, take only that dose. Do not take double or extra doses. Where should I keep my medicine? Keep out of the reach of children. Store at room temperature between 20 to 25 degrees C (68 to 77 degrees F). Protect from light. Throw away any unused medicine after the expiration date. What should I tell my health care provider before I take this medicine? They need to know if you have any of these conditions: anemia asthma being treated with anticonvulsants if you frequently drink alcohol containing drinks kidney disease liver disease low level of folic acid or [id number] dehydrogenase poor nutrition or malabsorption porphyria severe allergies thyroid disorder an unusual or allergic reaction to sulfamethoxazole, trimethoprim, sulfa drugs, other medicines, foods, dyes, or preservatives or trying to get breast-feeding What should I watch for while using this medicine? Tell your doctor or health chronic care nurse if your symptoms do not improve. Drink several glasses of water a day to reduce the risk of kidney problems. Do not treat diarrhea with over the counter products. Contact your doctor if you have diarrhea that lasts more than 2 days or if it is severe and watery. This medicine can make you more sensitive to the sun. Keep out of the sun. If you cannot avoid being in the sun, wear protective clothing and use a sunscreen. Do not use sun lamps or tanning beds/booths. You have been given the following additional information: Cellulitis Sulfamethoxazole, Trimethoprim Oral tablet Stay with responsible adult family member (or other responsible adult). (Electronically signed by Polo Hernandez MD 06/10/2016 11:49)
--- NOTE | 2016-06-10 11:49 | ED DISCHARGE INSTRUCTIONS ---
Patient: MICHELLE HURTADO General Instructions [facility] VisitID: [id number] [address], [place] [address] 31y, F Registration Date/Time: 06/01/2016 Adverse drug reaction. (QT prolongation likely due to haloperidol). 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 Abnormal liver function test: AST/SGOT, ALT/SGPT and alkaline phosphatase. Mild leukocytosis. No bandemia. Cellulitis of the left hand. INSTRUCTIONS Stay with responsible adult family member (or other responsible adult). Warnings: Further evaluation is necessary. GENERAL WARNINGS: Return or contact your physician immediately if your condition worsens or changes unexpectedly, if not improving as expected, or if other problems arise. Your Current Medications: CONTINUE TAKING THE FOLLOWING MEDICATIONS: HydrOXYzine HCl Oral : 25 mg, prn. KlonoPIN Oral. Neurontin Oral : 300 mg 3x a day. SEROquel Oral : 300 mg at bedtime. Prescription Medications: Bactrim DS 800 mg / 160 mg: take 1 tablet orally every 12 hours for 10 days. No refill. Substitution is permissible. Understanding of the discharge instructions verbalized by patient. Follow-up with: [facility], , , [address], [place], [address] Follow up tomorrow. Call for the next available appointment. ADDITIONAL INFORMATION Cellulitis You have an infection of the skin known as cellulitis. This usually starts with a scrape, cut, insect bite, blister or other opening in the skin which becomes infected. This is a serious condition. It must be watched closely to be sure the infection is not spreading. With antibiotic treatment, the size of the red area will gradually shrink in size until the skin returns to normal. This will take 7-10 days. The red area should never increase in size once the antibiotic medicine has been started. Occasionally, an infection will be resistant to one antibiotic and another one will have to be used. Home Care: 1) Limit the use of the affected part, since excess movement can cause the infection to spread. 2) If the infection is on your leg, walk as little as possible during the first few days of the treatment. Keep your leg elevated while sitting. This will reduce swelling. 3) Take all of the antibiotic medicine exactly as directed until it is gone. Be careful not to miss any doses, especially during the first seven days. Follow Up with your doctor or this facility as directed. Check the infected area daily for the warning signs listed below. Get Prompt Medical Attention if any of the following occur: -- Spreading area of redness -- Increasing swelling or pain -- Appearance of pus or drainage -- Fever over 100.4 F (38.0 C) oral, or over 101.4 F (38.6 C) rectal, after two days on antibiotics Sulfamethoxazole, Trimethoprim Oral tablet What is this medicine? SULFAMETHOXAZOLE; TRIMETHOPRIM or SMX-TMP (suhl fuh meth OK justin zohl; trye METH oh prim) is a combination of a sulfonamide antibiotic and a second antibiotic, trimethoprim. It is used to treat or prevent certain kinds of bacterial infections. It will not work for colds, flu, or other viral infections. How should I use this medicine? Take this medicine by mouth with a full glass of water. Follow the directions on the prescription label. Take your medicine at regular intervals. Do not take it more often than directed. Do not skip doses or stop your medicine early. Talk to your pool coordinator regarding the use of this medicine in children. Special care may be needed. This medicine has been used in children as young as 2 months of age. What side effects may I notice from receiving this medicine? Side effects that you should report to your doctor or health health care marketing manager as soon as possible: allergic reactions like skin rash or hives, swelling of the face, lips, or tongue breathing problems fever or chills, sore throat irregular heartbeat, chest pain joint or muscle pain pain or difficulty passing urine red pinpoint spots on skin redness, blistering, peeling or loosening of the skin, including inside the mouth unusual bleeding or bruising unusually weak or tired yellowing of the eyes or skin Side effects that usually do not require medical attention (report to your doctor or health health care marketing manager if they continue or are bothersome): diarrhea dizziness headache loss of appetite nausea, vomiting nervousness What may interact with this medicine? Do not take this medicine with any of the following medications: aminobenzoate potassium dofetilide metronidazole This medicine may also interact with the following medications: TK inhibitors like benazepril, enalapril, lisinopril, and ramipril cyclosporine digoxin diuretics indomethacin medicines for diabetes methenamine methotrexate phenytoin potassium supplements pyrimethamine sulfinpyrazone tricyclic antidepressants warfarin What if I miss a dose? If you miss a dose, take it as soon as you can. If it is almost time for your next dose, take only that dose. Do not take double or extra doses. Where should I keep my medicine? Keep out of the reach of children. Store at room temperature between 20 to 25 degrees C (68 to 77 degrees F). Protect from light. Throw away any unused medicine after the expiration date. What should I tell my health care provider before I take this medicine? They need to know if you have any of these conditions: anemia asthma being treated with anticonvulsants if you frequently drink alcohol containing drinks kidney disease liver disease low level of folic acid or [id number] dehydrogenase poor nutrition or malabsorption porphyria severe allergies thyroid disorder an unusual or allergic reaction to sulfamethoxazole, trimethoprim, sulfa drugs, other medicines, foods, dyes, or preservatives or trying to get breast-feeding What should I watch for while using this medicine? Tell your doctor or health health care marketing manager if your symptoms do not improve. Drink several glasses of water a day to reduce the risk of kidney problems. Do not treat diarrhea with over the counter products. Contact your doctor if you have diarrhea that lasts more than 2 days or if it is severe and watery. This medicine can make you more sensitive to the sun. Keep out of the sun. If you cannot avoid being in the sun, wear protective clothing and use a sunscreen. Do not use sun lamps or tanning beds/booths. You have been given the following additional information: Cellulitis Sulfamethoxazole, Trimethoprim Oral tablet Stay with responsible adult family member (or other responsible adult). (Electronically signed by Polo Hernandez MD 06/10/2016 11:49)
--- NOTE | 2016-06-10 11:50 | ED MED RECONCILIATION SUMMARY ---
Patient: MICHELLE HURTADO Medication Reconciliation Report [facility] VisitID: [id number] [address] [place] [address] 31y, F Registration Date/Time: 06/01/2016 Weight: 54.4 kg Height/Length: 64 in. BMI: 20.6 ALLERGIES: No Known Drug Allergy The patient's Home Medications are listed below: CONTINUE TAKING THE FOLLOWING MEDICATIONS: HydrOXYzine HCl Oral 25 mg KlonoPIN Oral Neurontin Oral 300 mg, 3x a day SEROquel Oral 300 mg, at bedtime The source(s) of the original Home Medication information: medication list cannot be confirmed The following Medications were given to the patient in the Emergency Department: ZYPREXA ZYDIS ODT [PO] PO 5 mg, administered: 06/01/2016 8:42:00 AM Clindamycin [PO] PO 300 mg, administered: 06/01/2016 12:41:00 PM HALDOL [IM] IM 5 mg, administered: 06/01/2016 5:20:00 PM Ativan [IM] IM 2 mg, administered: 06/01/2016 5:50:00 PM Bactrim DS [PO] PO 1 tab, administered: 06/02/2016 3:40:00 AM The following Medications were prescribed to the patient: Bactrim DS 800 mg / 160 mg: take 1 tablet orally every 12 hours for 10 days. No refill. Substitution is permissible. -- Polo Hernandez MD
--- NOTE | 2016-06-10 11:50 | ED MAR SUMMARY ---
..... Medication Administration Record [facility] [address] [address] Patient: MICHELLE HURTADO Visit ID: [id number] 31y, F Weight: 54.4 kg Height/Length: 64 in BMI: 20.6 ALLERGIES: No Known Drug Allergy Given 08:42 06/01/2016 Idalia Brandon R.N. Medication Administered: ZYPREXA ZYDIS ODT [PO] (OLANZAPINE), Dose: 5 mg PO. Medication Ordered: ZyPREXA Zydis ODT PO 5 mg (NOW). Given 12:41 06/01/2016 Idalia Brandon R.N. Medication Administered: CLINDAMYCIN [PO], Dose: 300 mg PO. Medication Ordered: Clindamycin PO 300 mg (NOW). Given 17:20 06/01/2016 Idalia Brandon R.N. Medication Administered: HALDOL [IM] (HALOPERIDOL LACTATE), Dose: 5 mg IM. Medication Ordered: Haldol IM 5 mg (HIGH ALERT MEDICATION, NOW). Given 17:50 06/01/2016 Idalia Brandon R.N. Medication Administered: ATIVAN [IM] (LORAZEPAM), Dose: 2 mg IM. Medication Ordered: Ativan IM 2 mg (HIGH ALERT MEDICATION, NOW). Given 03:40 06/02/2016 Francisco Che RMarikaNMarika Medication Administered: BACTRIM DS [PO] (SULFAMETHOXAZOLE-TMP DS), Dose: 1 tab PO. Medication Ordered: Bactrim DS PO (Tablet 800-160 mg) 1 tab (NOW).
--- NOTE | 2016-06-10 11:50 | ED MED RECONCILIATION SUMMARY ---
Patient: MICHELLE HURTADO Medication Reconciliation Report [facility] VisitID: [id number] [address] [place] [address] 31y, F Registration Date/Time: 06/01/2016 Weight: 54.4 kg Height/Length: 64 in. BMI: 20.6 ALLERGIES: No Known Drug Allergy The patient's Home Medications are listed below: CONTINUE TAKING THE FOLLOWING MEDICATIONS: HydrOXYzine HCl Oral 25 mg KlonoPIN Oral Neurontin Oral 300 mg, 3x a day SEROquel Oral 300 mg, at bedtime The source(s) of the original Home Medication information: medication list cannot be confirmed The following Medications were given to the patient in the Emergency Department: ZYPREXA ZYDIS ODT [PO] PO 5 mg, administered: 06/01/2016 8:42:00 AM Clindamycin [PO] PO 300 mg, administered: 06/01/2016 12:41:00 PM HALDOL [IM] IM 5 mg, administered: 06/01/2016 5:20:00 PM Ativan [IM] IM 2 mg, administered: 06/01/2016 5:50:00 PM Bactrim DS [PO] PO 1 tab, administered: 06/02/2016 3:40:00 AM The following Medications were prescribed to the patient: Bactrim DS 800 mg / 160 mg: take 1 tablet orally every 12 hours for 10 days. No refill. Substitution is permissible. -- Polo Hernandez MD
--- NOTE | 2016-06-10 11:50 | ED MAR SUMMARY ---
..... Medication Administration Record [facility] [address] [place] [address] Patient: MICHELLE HURTADO Visit ID: [id number] 31y, F Weight: 54.4 kg Height/Length: 64 in BMI: 20.6 ALLERGIES: No Known Drug Allergy Given 08:42 06/01/2016 Idalia Brandon R.N. Medication Administered: ZYPREXA ZYDIS ODT [PO] (OLANZAPINE), Dose: 5 mg PO. Medication Ordered: ZyPREXA Zydis ODT PO 5 mg (NOW). Given 12:41 06/01/2016 Idalia Brandon R.N. Medication Administered: CLINDAMYCIN [PO], Dose: 300 mg PO. Medication Ordered: Clindamycin PO 300 mg (NOW). Given 17:20 06/01/2016 Idalia Brandon R.N. Medication Administered: HALDOL [IM] (HALOPERIDOL LACTATE), Dose: 5 mg IM. Medication Ordered: Haldol IM 5 mg (HIGH ALERT MEDICATION, NOW). Given 17:50 06/01/2016 Idalia Brandon R.N. Medication Administered: ATIVAN [IM] (LORAZEPAM), Dose: 2 mg IM. Medication Ordered: Ativan IM 2 mg (HIGH ALERT MEDICATION, NOW). Given 03:40 06/02/2016 Francisco Che RMarikaNMarika Medication Administered: BACTRIM DS [PO] (SULFAMETHOXAZOLE-TMP DS), Dose: 1 tab PO. Medication Ordered: Bactrim DS PO (Tablet 800-160 mg) 1 tab (NOW).
== END 2016-06-02 03:42 | disposition home or self-care (01) ==
LOC: ED SRH 07:13
DX: T88.7XXA Unspecified adverse effect of drug or medicament, initial encounter (principal); T43.4X5A Adverse effect of butyrophenone and thiothixene neuroleptics, initial encounter; I45.81 Long QT syndrome; F15.159 Other stimulant abuse with stimulant-induced psychotic disorder, unspecified; F12.159 Cannabis abuse with psychotic disorder, unspecified; F15.180 Other stimulant abuse with stimulant-induced anxiety disorder; F12.180 Cannabis abuse with cannabis-induced anxiety disorder; Y92.002 Bathroom of unspecified non-institutional (private) residence as the place of occurrence of the external cause; L03.114 Cellulitis of left upper limb; R94.5 Abnormal results of liver function studies; D72.829 Elevated white blood cell count, unspecified
CPT/HCPCS: 81460; 90004; 90065; 90074; 90100; 91320; 91643; 92010; 92720; 92760; 92761; 92762; 92763; 92764; 92765; 92766; 92767; 93070; 94060; 95059

== ENCOUNTER 2016-06-29 17:30 | Emergency (ER) | payer OTHER ==
--- NOTE | 2016-07-01 02:27 | ED NURSING NOTES ---
Clinical Report - Nurses [address] [place] [address] 06/29/2016 17:30 Patient: MICHELLE HURTADO *This is a preliminary document and is subject to change DISPOSITION / DISCHARGE ( See paper chart for all nursing notes.). --00:48 Blaire Mayer R.N. Departure time: 1824Jun 29 2016. --00:48 Blaire Mayer R.N. This report is not final
--- NOTE | 2016-07-01 02:27 | ED NURSING NOTES ---
Clinical Report - Nurses [address] [place] [address] 06/29/2016 17:30 Patient: MICHELLE HURTADO *This is a preliminary document and is subject to change DISPOSITION / DISCHARGE ( See paper chart for all nursing notes.). --00:48 Blaire Mayer R.N. Departure time: 1824Jun 29 2016. --00:48 Blaire Mayer R.N. This report is not final
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
--- NOTE | 2016-07-23 08:52 | ED MED RECONCILIATION SUMMARY ---
Patient: MICHELLE HURTADO Medication Reconciliation Report [facility] VisitID: [id number] [address] [place] [address] 31y, F Registration Date/Time: 06/29/2016 Weight: (not available) Height/Length: (not available) BMI: (not available) ALLERGIES: The patient's Home Medications are listed below: Not obtained. The source(s) of the original Home Medication information: Not obtained. The following Medications were given to the patient in the Emergency Department: None. The following Medications were prescribed to the patient: Septra DS 800 mg / 160 mg: take 1 tablet orally every 12 hours for 7 days. Dispense fourteen (14). No refills. Substitution is permissible. -- Jess Roberts A.R.N.P.
--- NOTE | 2016-07-23 08:52 | ED DISCHARGE INSTRUCTIONS ---
Patient: MICHELLE HURTADO General Instructions [facility] VisitID: [id number] [address] [place] [address] 31y, F Registration Date/Time: 06/29/2016 Anxiety reaction. INSTRUCTIONS Warnings: GENERAL WARNINGS: Return or contact your physician immediately if your condition worsens or changes unexpectedly, if not improving as expected, or if other problems arise. Specifically return if problem worsens. Prescription Medications: Septra DS 800 mg / 160 mg: take 1 tablet orally every 12 hours for 7 days. Dispense fourteen (14). No refills. Substitution is permissible. Follow-up: Follow up with your doctor in about three days as needed. Call for an appointment. Summary of care provided to patient. Understanding of the discharge instructions verbalized by patient. ADDITIONAL INFORMATION Stress Reaction Anxiety is the feeling we all get when we think something bad might happen. It is a normal response to stress and usually causes only a mild reaction. When anxiety becomes more severe, emotions may interfere with daily life. In some cases, you may not even be aware of what it is youre anxious about! During an anxiety reaction, you may feel like you are helpless, nervous, depressed or irritable. Your body may show signs of anxiety in many ways. You may experience dry mouth, shakiness, dizziness, weakness, trouble breathing, chest pressure, headache, nausea, diarrhea, tiredness, inability to sleep or sexual problems. Home Care: 1) Try to locate the sources of stress in your life. They may not be obvious! These may include: -- Daily hassles of life which pile up (traffic jams, missed appointments, car troubles, etc.) -- Major life changes, both good (new baby, job promotion) and bad (loss of job, loss of loved one) -- Overload: feeling that you have too many responsibilities and can't take care of all of them at once -- Feeling helpless, feeling that your problems are beyond what youre able to solve 2) Notice how your body reacts to stress. Learn to listen to your body signals. This will help you take action before the stress becomes severe. 3) When you can, do something about the source of your stress. (Avoid hassles, limit the amount of change that happens in your life at one time and take a break when you feel overloaded). 4) Unfortunately, many stressful situations cannot be avoided. It is necessary to learn HOW TO MANAGE STRESS better. There are many proven methods that will reduce your anxiety. These include simple things like exercise, good nutrition and adequate rest. Also, there are certain techniques that are helpful: relaxation and breathing exercises, visualization, biofeedback and meditation. For more information about this, consult your doctor or go to a local bookstore and review the many books and tapes available on this subject. Follow Up If you feel that your anxiety is not responding to self-help measures, contact your doctor or make an appointment with a counselor. Get Prompt Medical Attention if any of the following occur: -- Your symptoms get worse -- Chest pain or trouble breathing -- Severe headache not relieved by rest and mild pain reliever -- Rapid or irregular heartbeat, fainting Sulfamethoxazole, Trimethoprim Oral tablet What is this medicine? SULFAMETHOXAZOLE; TRIMETHOPRIM or SMX-TMP (suhl fuh meth OK justin zohl; trye METH oh prim) is a combination of a sulfonamide antibiotic and a second antibiotic, trimethoprim. It is used to treat or prevent certain kinds of bacterial infections. It will not work for colds, flu, or other viral infections. How should I use this medicine? Take this medicine by mouth with a full glass of water. Follow the directions on the prescription label. Take your medicine at regular intervals. Do not take it more often than directed. Do not skip doses or stop your medicine early. Talk to your civil structural engineer regarding the use of this medicine in children. Special care may be needed. This medicine has been used in children as young as 2 months of age. What side effects may I notice from receiving this medicine? Side effects that you should report to your doctor or health critical care clinical nurse specialist as soon as possible: allergic reactions like skin rash or hives, swelling of the face, lips, or tongue breathing problems fever or chills, sore throat irregular heartbeat, chest pain joint or muscle pain pain or difficulty passing urine red pinpoint spots on skin redness, blistering, peeling or loosening of the skin, including inside the mouth unusual bleeding or bruising unusually weak or tired yellowing of the eyes or skin Side effects that usually do not require medical attention (report to your doctor or health critical care clinical nurse specialist if they continue or are bothersome): diarrhea dizziness headache loss of appetite nausea, vomiting nervousness What may interact with this medicine? Do not take this medicine with any of the following medications: aminobenzoate potassium dofetilide metronidazole This medicine may also interact with the following medications: TK inhibitors like benazepril, enalapril, lisinopril, and ramipril cyclosporine digoxin diuretics indomethacin medicines for diabetes methenamine methotrexate phenytoin potassium supplements pyrimethamine sulfinpyrazone tricyclic antidepressants warfarin What if I miss a dose? If you miss a dose, take it as soon as you can. If it is almost time for your next dose, take only that dose. Do not take double or extra doses. Where should I keep my medicine? Keep out of the reach of children. Store at room temperature between 20 to 25 degrees C (68 to 77 degrees F). Protect from light. Throw away any unused medicine after the expiration date. What should I tell my health care provider before I take this medicine? They need to know if you have any of these conditions: anemia asthma being treated with anticonvulsants if you frequently drink alcohol containing drinks kidney disease liver disease low level of folic acid or [id number] dehydrogenase poor nutrition or malabsorption porphyria severe allergies thyroid disorder an unusual or allergic reaction to sulfamethoxazole, trimethoprim, sulfa drugs, other medicines, foods, dyes, or preservatives or trying to get breast-feeding What should I watch for while using this medicine? Tell your doctor or health critical care clinical nurse specialist if your symptoms do not improve. Drink several glasses of water a day to reduce the risk of kidney problems. Do not treat diarrhea with over the counter products. Contact your doctor if you have diarrhea that lasts more than 2 days or if it is severe and watery. This medicine can make you more sensitive to the sun. Keep out of the sun. If you cannot avoid being in the sun, wear protective clothing and use a sunscreen. Do not use sun lamps or tanning beds/booths. You have been given the following additional information: Anxiety Reaction Sulfamethoxazole, Trimethoprim Oral tablet (Electronically signed by Jess Roberts A.R.N.P. 06/30/2016 13:13)
--- NOTE | 2016-07-23 08:52 | ED MED RECONCILIATION SUMMARY ---
Patient: MICHELLE HURTADO Medication Reconciliation Report [facility] VisitID: [id number] [address] [place] [address] 31y, F Registration Date/Time: 06/29/2016 Weight: (not available) Height/Length: (not available) BMI: (not available) ALLERGIES: The patient's Home Medications are listed below: Not obtained. The source(s) of the original Home Medication information: Not obtained. The following Medications were given to the patient in the Emergency Department: None. The following Medications were prescribed to the patient: Septra DS 800 mg / 160 mg: take 1 tablet orally every 12 hours for 7 days. Dispense fourteen (14). No refills. Substitution is permissible. -- Jess Roberts A.R.N.P.
--- NOTE | 2016-07-23 08:52 | ED MAR SUMMARY ---
..... Medication Administration Record [facility] [address], [place] [id number] Patient: MICHELLE HURTADO Visit ID: [id number] 31y, F Weight: (not available) Height/Length: (not available) BMI: (not available) ALLERGIES:
--- NOTE | 2016-07-23 08:52 | ED DISCHARGE INSTRUCTIONS ---
Patient: MICHELLE HURTADO General Instructions [facility] VisitID: [id number] [address] [place] [address] 31y, F Registration Date/Time: 06/29/2016 Anxiety reaction. INSTRUCTIONS Warnings: GENERAL WARNINGS: Return or contact your physician immediately if your condition worsens or changes unexpectedly, if not improving as expected, or if other problems arise. Specifically return if problem worsens. Prescription Medications: Septra DS 800 mg / 160 mg: take 1 tablet orally every 12 hours for 7 days. Dispense fourteen (14). No refills. Substitution is permissible. Follow-up: Follow up with your doctor in about three days as needed. Call for an appointment. Summary of care provided to patient. Understanding of the discharge instructions verbalized by patient. ADDITIONAL INFORMATION Stress Reaction Anxiety is the feeling we all get when we think something bad might happen. It is a normal response to stress and usually causes only a mild reaction. When anxiety becomes more severe, emotions may interfere with daily life. In some cases, you may not even be aware of what it is youre anxious about! During an anxiety reaction, you may feel like you are helpless, nervous, depressed or irritable. Your body may show signs of anxiety in many ways. You may experience dry mouth, shakiness, dizziness, weakness, trouble breathing, chest pressure, headache, nausea, diarrhea, tiredness, inability to sleep or sexual problems. Home Care: 1) Try to locate the sources of stress in your life. They may not be obvious! These may include: -- Daily hassles of life which pile up (traffic jams, missed appointments, car troubles, etc.) -- Major life changes, both good (new baby, job promotion) and bad (loss of job, loss of loved one) -- Overload: feeling that you have too many responsibilities and can't take care of all of them at once -- Feeling helpless, feeling that your problems are beyond what youre able to solve 2) Notice how your body reacts to stress. Learn to listen to your body signals. This will help you take action before the stress becomes severe. 3) When you can, do something about the source of your stress. (Avoid hassles, limit the amount of change that happens in your life at one time and take a break when you feel overloaded). 4) Unfortunately, many stressful situations cannot be avoided. It is necessary to learn HOW TO MANAGE STRESS better. There are many proven methods that will reduce your anxiety. These include simple things like exercise, good nutrition and adequate rest. Also, there are certain techniques that are helpful: relaxation and breathing exercises, visualization, biofeedback and meditation. For more information about this, consult your doctor or go to a local bookstore and review the many books and tapes available on this subject. Follow Up If you feel that your anxiety is not responding to self-help measures, contact your doctor or make an appointment with a counselor. Get Prompt Medical Attention if any of the following occur: -- Your symptoms get worse -- Chest pain or trouble breathing -- Severe headache not relieved by rest and mild pain reliever -- Rapid or irregular heartbeat, fainting Sulfamethoxazole, Trimethoprim Oral tablet What is this medicine? SULFAMETHOXAZOLE; TRIMETHOPRIM or SMX-TMP (suhl fuh meth OK justin zohl; trye METH oh prim) is a combination of a sulfonamide antibiotic and a second antibiotic, trimethoprim. It is used to treat or prevent certain kinds of bacterial infections. It will not work for colds, flu, or other viral infections. How should I use this medicine? Take this medicine by mouth with a full glass of water. Follow the directions on the prescription label. Take your medicine at regular intervals. Do not take it more often than directed. Do not skip doses or stop your medicine early. Talk to your rn manager regarding the use of this medicine in children. Special care may be needed. This medicine has been used in children as young as 2 months of age. What side effects may I notice from receiving this medicine? Side effects that you should report to your doctor or health chronic care nurse as soon as possible: allergic reactions like skin rash or hives, swelling of the face, lips, or tongue breathing problems fever or chills, sore throat irregular heartbeat, chest pain joint or muscle pain pain or difficulty passing urine red pinpoint spots on skin redness, blistering, peeling or loosening of the skin, including inside the mouth unusual bleeding or bruising unusually weak or tired yellowing of the eyes or skin Side effects that usually do not require medical attention (report to your doctor or health chronic care nurse if they continue or are bothersome): diarrhea dizziness headache loss of appetite nausea, vomiting nervousness What may interact with this medicine? Do not take this medicine with any of the following medications: aminobenzoate potassium dofetilide metronidazole This medicine may also interact with the following medications: TK inhibitors like benazepril, enalapril, lisinopril, and ramipril cyclosporine digoxin diuretics indomethacin medicines for diabetes methenamine methotrexate phenytoin potassium supplements pyrimethamine sulfinpyrazone tricyclic antidepressants warfarin What if I miss a dose? If you miss a dose, take it as soon as you can. If it is almost time for your next dose, take only that dose. Do not take double or extra doses. Where should I keep my medicine? Keep out of the reach of children. Store at room temperature between 20 to 25 degrees C (68 to 77 degrees F). Protect from light. Throw away any unused medicine after the expiration date. What should I tell my health care provider before I take this medicine? They need to know if you have any of these conditions: anemia asthma being treated with anticonvulsants if you frequently drink alcohol containing drinks kidney disease liver disease low level of folic acid or [id number] dehydrogenase poor nutrition or malabsorption porphyria severe allergies thyroid disorder an unusual or allergic reaction to sulfamethoxazole, trimethoprim, sulfa drugs, other medicines, foods, dyes, or preservatives or trying to get breast-feeding What should I watch for while using this medicine? Tell your doctor or health chronic care nurse if your symptoms do not improve. Drink several glasses of water a day to reduce the risk of kidney problems. Do not treat diarrhea with over the counter products. Contact your doctor if you have diarrhea that lasts more than 2 days or if it is severe and watery. This medicine can make you more sensitive to the sun. Keep out of the sun. If you cannot avoid being in the sun, wear protective clothing and use a sunscreen. Do not use sun lamps or tanning beds/booths. You have been given the following additional information: Anxiety Reaction Sulfamethoxazole, Trimethoprim Oral tablet (Electronically signed by Jess Roberts A.R.N.P. 06/30/2016 13:13)
--- NOTE | 2016-07-23 08:52 | ED MAR SUMMARY ---
..... Medication Administration Record [facility] [address], [place] [id number] Patient: MICHELLE HURTADO Visit ID: [id number] 31y, F Weight: (not available) Height/Length: (not available) BMI: (not available) ALLERGIES:
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
== END 2016-06-29 18:25 | disposition home or self-care (01) ==
LOC: ED SRH 17:30
DX: F41.9 Anxiety disorder, unspecified (principal); Z72.0 Tobacco use

== ENCOUNTER 2016-06-30 12:04 | Emergency (ER) | payer OTHER ==
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
--- NOTE | 2016-07-01 02:32 | ED NURSING NOTES ---
Clinical Report - Nurses Located Within [facility] [address] [place] [address] 06/30/2016 12:04 Patient: MICHELLE HURTADO TRIAGE Triage time 12:11. Acuity: LEVEL 4. Chief Complaint: (Headache, onset Tuesday. Pt was released from correction Tuesday. Also c/o left hand pain and swelling, wants rings cut off. Acute herpes outbreak on her mouth. Pt has been off her meds since Tuesday. Her anxiety is getting worse and she is having flight of ideas.). 12:17 06/30/16. JOSE F COMA SCORE: Jose F Coma Scale: 15- eyes open spontaneously (4); best verbal response- oriented x 4 (5); best motor response- obeys commands (6). --12:18 Juan Rodriguez R.N. 12:11 06/30/16. BP: 111/60. HR: 100. RR: 16. O2 saturation: 100% on room air. Temp: 98.9 F (oral). Pain level now: 810. --12:18 Juan Rodriguez R.N. Weight: 61.2 kg stated. Height/Length: 60 inches Per Patient. BMI: 26.4. --12:15 Juan Rodriguez R.N. Medications KlonoPIN Oral. Neurontin Oral 300 mg, 3x a day. SEROquel Oral 300 mg, at bedtime. --12:13 Juan Rodriguez R.N. Percocet Oral. --12:14 Juan Rodriguez R.N. Allergies No Known Drug Allergy. --12:13 Juan Rodriguez R.N. History Arrived by private vehicle. Historian: patient and family. Treatment SHIRT MAKER: None. SOCIAL HX: Light tobacco smoker (cigarette)- less than 1/2 a pack per day. No alcohol use or drug use. ABUSE ASSESSMENT: No report of abuse. --12:18 Juan Rodriguez R.N. PROBLEMS: Adverse Drug Reaction. Leukocytosis. Abnormal Liver Function Test. Cellulitis. Mental Illness. UTI - Urinary Tract Infection. Psychosis. Hypomagnesemia. Tonsillitis. Bipolar Disorder. Schizoaffective Disorder. Hep C treated with interferon. Substance Abuse. Hypoglycemia. Hypokalemia. . Spontaneous (Miscarriage). OB History. Dental Pain. Asthma. Anxiety Reaction. Sinusitis. Fever. Pharyngitis. Immunizations. LNMP - Last Normal Menstrual Period. --12:14 Juan Rodriguez R.N. Arthritis. --12:15 Juan Rodriguez R.N. ADDITIONAL SURGERIES: Appendectomy. --12:14 Juan Rodriguez R.N. Interventions ID band on patient. To treatment room. --12:18 Juan Rodriguez R.N. PHYSICAL ASSESSMENT 12:21 06/30/16. Ambulatory to room. ( Pt's mother is at the bedside.). GENERAL / NEURO / PSYCH: Alert. Oriented X 4. Appears anxious. ( flight of ideas, rapid speach). HEENT: Pupils equal, round and reactive to light. No facial asymmetry noted. ( active herpes on her mouth, sore tongue). Mucous membranes are pink. RESPIRATORY: Respirations not labored. Chest nontender. Breath sounds within normal limits. CVS: Capillary refill less than 2 seconds. Pulses within normal limits. GI / : Abdomen soft and nontender and normal bowel sounds. SKIN: Skin is dry. Normal skin turgor. ( cold hands, possible left hand abscess (I&D done approx 1 month ago), pt wants 2 of her rings cut off due to swelling.). --12:23 Juan Rodriguez R.N. NURSING PROGRESS NOTES 12:06/30/16. Reassurance given. Two patient identifiers checked. Call light placed in reach. Bed placed in lowest position. Brakes of bed on. Patient ready for evaluation- chart flagged. --12:23 Juan Rodriguez R.N. 13:10 ambulated to bathroom, UA sent to lab. --13:15 Kym Bourgeois R.N. 13:27 06/30/2016 Toradol (Ketorolac Tromethamine) IM 60 mg given. Given in the right ventral gluteus. Allergies verified and confirmed 5 rights. --13:31 Kym Bourgeois R.N. 13:27 06/30/2016 Ativan (LORazepam) PO 2 mg given. Allergies verified and sedative warning given to the patient and patient's family. --13:33 Kym Bourgeois R.N. 13:20. ( rings removed by EDNP without difficulty). --13:33 Kym Bourgeois R.N. DISPOSITION / DISCHARGE 13:42. Condition at departure: improved and stable. No learning barriers present. Discharge instructions provided and reviewed with the patient. Reviewed referrals (follow up with tomorrow as scheduled). Patient and orange picker machine operator verbalized understanding. Written instructions provided in Stateless. The patient was discharged home and accompanied by orange picker machine operator. She left the Emergency Department ambulatory and via private vehicle. Brass Finisher driving. --14:08 Kym Bourgeois R.N. 13:42 06/30/16. BP: 132/90. HR: 88. RR: 20. O2 saturation: 99%. Temp: deferred. Pain level now: 08/02. --14:08 Kym Bourgeois R.N. Locked/Released at 06/30/2016 14:09 by Kym Bourgeois R.N.
--- NOTE | 2016-07-01 02:32 | ED NURSING NOTES ---
Clinical Report - Nurses [facility] [address] [place] [address] 06/30/2016 12:04 Patient: MICHELLE HURTADO TRIAGE Triage time 12:11. Acuity: LEVEL 4. Chief Complaint: (Headache, onset Tuesday. Pt was released from long-term Tuesday. Also c/o left hand pain and swelling, wants rings cut off. Acute herpes outbreak on her mouth. Pt has been off her meds since Tuesday. Her anxiety is getting worse and she is having flight of ideas.). 12:17 06/30/16. JOSE F COMA SCORE: Jose F Coma Scale: 15- eyes open spontaneously (4); best verbal response- oriented x 4 (5); best motor response- obeys commands (6). --12:18 Juan Rodriguez R.N. 12:11 06/30/16. BP: 111/60. HR: 100. RR: 16. O2 saturation: 100% on room air. Temp: 98.9 F (oral). Pain level now: 810. --12:18 Juan Rodriguez R.N. Weight: 61.2 kg stated. Height/Length: 60 inches Per Patient. BMI: 26.4. --12:15 Juan Rodriguez R.N. Medications KlonoPIN Oral. Neurontin Oral 300 mg, 3x a day. SEROquel Oral 300 mg, at bedtime. --12:13 Juan Rodriguez R.N. Percocet Oral. --12:14 Juan Rodriguez R.N. Allergies No Known Drug Allergy. --12:13 Juan Rodriguez R.N. History Arrived by private vehicle. Historian: patient and family. Treatment MEDICAL CHEMIST: None. SOCIAL HX: Light tobacco smoker (cigarette)- less than 1/2 a pack per day. No alcohol use or drug use. ABUSE ASSESSMENT: No report of abuse. --12:18 Juan Rodriguez R.N. PROBLEMS: Adverse Drug Reaction. Leukocytosis. Abnormal Liver Function Test. Cellulitis. Mental Illness. UTI - Urinary Tract Infection. Psychosis. Hypomagnesemia. Tonsillitis. Bipolar Disorder. Schizoaffective Disorder. Hep C treated with interferon. Substance Abuse. Hypoglycemia. Hypokalemia. . Spontaneous (Miscarriage). OB History. Dental Pain. Asthma. Anxiety Reaction. Sinusitis. Fever. Pharyngitis. Immunizations. LNMP - Last Normal Menstrual Period. --12:14 Juan Rodriguez R.N. Arthritis. --12:15 Juan Rodriguez R.N. ADDITIONAL SURGERIES: Appendectomy. --12:14 Juan Rodriguez R.N. Interventions ID band on patient. To treatment room. --12:18 Juan Rodriguez R.N. PHYSICAL ASSESSMENT 12:21 06/30/16. Ambulatory to room. ( Pt's mother is at the bedside.). GENERAL / NEURO / PSYCH: Alert. Oriented X 4. Appears anxious. ( flight of ideas, rapid speach). HEENT: Pupils equal, round and reactive to light. No facial asymmetry noted. ( active herpes on her mouth, sore tongue). Mucous membranes are pink. RESPIRATORY: Respirations not labored. Chest nontender. Breath sounds within normal limits. CVS: Capillary refill less than 2 seconds. Pulses within normal limits. GI / : Abdomen soft and nontender and normal bowel sounds. SKIN: Skin is dry. Normal skin turgor. ( cold hands, possible left hand abscess (I&D done approx 1 month ago), pt wants 2 of her rings cut off due to swelling.). --12:23 Juan Rodriguez R.N. NURSING PROGRESS NOTES 12:06/30/16. Reassurance given. Two patient identifiers checked. Call light placed in reach. Bed placed in lowest position. Brakes of bed on. Patient ready for evaluation- chart flagged. --12:23 Juan Rodriguez R.N. 13:10 ambulated to bathroom, UA sent to lab. --13:15 Kym Bourgeois R.N. 13:27 06/30/2016 Toradol (Ketorolac Tromethamine) IM 60 mg given. Given in the right ventral gluteus. Allergies verified and confirmed 5 rights. --13:31 Kym Bourgeois R.N. 13:27 06/30/2016 Ativan (LORazepam) PO 2 mg given. Allergies verified and sedative warning given to the patient and patient's family. --13:33 Kym Bourgeois R.N. 13:20. ( rings removed by EDNP without difficulty). --13:33 Kym Bourgeois R.N. DISPOSITION / DISCHARGE 13:42. Condition at departure: improved and stable. No learning barriers present. Discharge instructions provided and reviewed with the patient. Reviewed referrals (follow up with tomorrow as scheduled). Patient and cash applications manager verbalized understanding. Written instructions provided in [place]. The patient was discharged home and accompanied by cash applications manager. She left the Emergency Department ambulatory and via private vehicle. Loss Control Technician driving. --14:08 Kym Bourgeois R.N. 13:42 06/30/16. BP: 132/90. HR: 88. RR: 20. O2 saturation: 99%. Temp: deferred. Pain level now: 08/02. --14:08 Kym Bourgeois R.N. Locked/Released at 06/30/2016 14:09 by Kym Bourgeois R.N.
--- NOTE | 2016-07-01 02:33 | ED ORDER SUMMARY ---
..... Patient: MICHELLE HURTADO OrderSheet [facility] VisitID: [id number] [address] [place] [address] 31y, F Registration Date/Time: 06/30/2016 ORDER SHEET Weight: 61.2 kg (stated) Allergies: No Known Drug Allergy GENERAL ORDERS: MEDICATION ORDERS: Ativan PO 2 mg (HIGH ALERT MEDICATION, NOW) (13:24 06/30/2016 HBivens A.R.N.P.) (Ack 13:26 DDean R.N.) (13:33 DDean R.N.) Toradol IM 60 mg (NOW) (13:24 06/30/2016 HBivens A.R.N.P.) (Ack 13:26 DDean R.N.) (13:31 DDean R.N.) IV FLUIDS: ORDER SHEET NOTES: [Electronically signed by Kym Bourgeois R.N. (14:09 06/30/2016)] [Electronically signed by Jess RobertsR.N.P. (16:43 06/30/2016)] [Electronically locked/signed by Kym Bourgeois R.N. (14:09 06/30/2016)]
--- NOTE | 2016-07-01 02:33 | ED ORDER SUMMARY ---
..... Patient: MICHELLE HURTADO OrderSheet [facility] VisitID: [id number] [address] [place] [address] 31y, F Registration Date/Time: 06/30/2016 ORDER SHEET Weight: 61.2 kg (stated) Allergies: No Known Drug Allergy GENERAL ORDERS: MEDICATION ORDERS: Ativan PO 2 mg (HIGH ALERT MEDICATION, NOW) (13:24 06/30/2016 HBivens A.R.N.P.) (Ack 13:26 DDean R.N.) (13:33 DDean R.N.) Toradol IM 60 mg (NOW) (13:24 06/30/2016 HBivens A.R.N.P.) (Ack 13:26 DDean R.N.) (13:31 DDean R.N.) IV FLUIDS: ORDER SHEET NOTES: [Electronically signed by Kym Bourgeois R.N. (14:09 06/30/2016)] [Electronically signed by Jess RobertsR.N.P. (16:43 06/30/2016)] [Electronically locked/signed by Kym Bourgeois R.N. (14:09 06/30/2016)]
--- NOTE | 2016-07-01 02:34 | ED MED RECONCILIATION SUMMARY ---
Patient: MICHELLE HURTADO Medication Reconciliation Report [facility] VisitID: [id number] [address] [place] [address] 31y, F Registration Date/Time: 06/30/2016 Weight: 61.2 kg Height/Length: 60 in. BMI: 26.4 ALLERGIES: No Known Drug Allergy The patient's Home Medications are listed below: THE FOLLOWING MEDICATIONS NEED TO BE RECONCILED: KlonoPIN Oral Neurontin Oral 300 mg, 3x a day Percocet Oral SEROquel Oral 300 mg, at bedtime The source(s) of the original Home Medication information: Not obtained. The following Medications were given to the patient in the Emergency Department: Toradol [IM] IM 60 mg, administered: 06/30/2016 1:27:00 PM Ativan [PO] PO 2 mg, administered: 06/30/2016 1:27:00 PM The following Medications were prescribed to the patient: None.
--- NOTE | 2016-07-01 02:34 | ED MED RECONCILIATION SUMMARY ---
Patient: MICHELLE HURTADO Medication Reconciliation Report [facility] VisitID: [id number] [address] [place] [address] 31y, F Registration Date/Time: 06/30/2016 Weight: 61.2 kg Height/Length: 60 in. BMI: 26.4 ALLERGIES: No Known Drug Allergy The patient's Home Medications are listed below: THE FOLLOWING MEDICATIONS NEED TO BE RECONCILED: KlonoPIN Oral Neurontin Oral 300 mg, 3x a day Percocet Oral SEROquel Oral 300 mg, at bedtime The source(s) of the original Home Medication information: Not obtained. The following Medications were given to the patient in the Emergency Department: Toradol [IM] IM 60 mg, administered: 06/30/2016 1:27:00 PM Ativan [PO] PO 2 mg, administered: 06/30/2016 1:27:00 PM The following Medications were prescribed to the patient: None.
--- NOTE | 2016-07-01 02:34 | ED DISCHARGE INSTRUCTIONS ---
Patient: MICHELLE HURTADO General Instructions [facility] VisitID: [id number] [address] [place] [address] 31y, F Registration Date/Time: 06/30/2016 Anxiety reaction. INSTRUCTIONS Warnings: GENERAL WARNINGS: Return or contact your physician immediately if your condition worsens or changes unexpectedly, if not improving as expected, or if other problems arise. Specifically return if problem worsens. Follow-up: Follow up with your doctor tomorrow as scheduled. Summary of care provided to patient. Understanding of the discharge instructions verbalized by patient. ADDITIONAL INFORMATION Stress Reaction Anxiety is the feeling we all get when we think something bad might happen. It is a normal response to stress and usually causes only a mild reaction. When anxiety becomes more severe, emotions may interfere with daily life. In some cases, you may not even be aware of what it is youre anxious about! During an anxiety reaction, you may feel like you are helpless, nervous, depressed or irritable. Your body may show signs of anxiety in many ways. You may experience dry mouth, shakiness, dizziness, weakness, trouble breathing, chest pressure, headache, nausea, diarrhea, tiredness, inability to sleep or sexual problems. Home Care: 1) Try to locate the sources of stress in your life. They may not be obvious! These may include: -- Daily hassles of life which pile up (traffic jams, missed appointments, car troubles, etc.) -- Major life changes, both good (new baby, job promotion) and bad (loss of job, loss of loved one) -- Overload: feeling that you have too many responsibilities and can't take care of all of them at once -- Feeling helpless, feeling that your problems are beyond what youre able to solve 2) Notice how your body reacts to stress. Learn to listen to your body signals. This will help you take action before the stress becomes severe. 3) When you can, do something about the source of your stress. (Avoid hassles, limit the amount of change that happens in your life at one time and take a break when you feel overloaded). 4) Unfortunately, many stressful situations cannot be avoided. It is necessary to learn HOW TO MANAGE STRESS better. There are many proven methods that will reduce your anxiety. These include simple things like exercise, good nutrition and adequate rest. Also, there are certain techniques that are helpful: relaxation and breathing exercises, visualization, biofeedback and meditation. For more information about this, consult your doctor or go to a local bookstore and review the many books and tapes available on this subject. Follow Up If you feel that your anxiety is not responding to self-help measures, contact your doctor or make an appointment with a counselor. Get Prompt Medical Attention if any of the following occur: -- Your symptoms get worse -- Chest pain or trouble breathing -- Severe headache not relieved by rest and mild pain reliever -- Rapid or irregular heartbeat, fainting You have been given the following additional information: Anxiety Reaction (Electronically signed by Jess Roberts A.R.N.P. 06/30/2016 16:43)
--- NOTE | 2016-07-01 02:34 | ED MAR SUMMARY ---
..... Medication Administration Record [facility] [address] [place] [address] Patient: MICHELLE HURTADO Visit ID: [id number] 31y, F Weight: 61.2 kg Height/Length: 60 in BMI: 26.4 ALLERGIES: No Known Drug Allergy Given 13:06/30/2016 Kym Bourgeois RMarikaN. Medication Administered: ATIVAN [PO] (LORAZEPAM), Dose: 2 mg PO. Medication Ordered: Ativan PO 2 mg (HIGH ALERT MEDICATION, NOW). Given 13:06/30/2016 Kym Bourgeois, RMarikaN. Medication Administered: TORADOL [IM] (KETOROLAC TROMETHAMINE), Dose: 60 mg IM. Medication Ordered: Toradol IM 60 mg (NOW).
--- NOTE | 2016-07-01 02:34 | ED MAR SUMMARY ---
..... Medication Administration Record [facility] [address] [place] [address] Patient: MICHELLE HURTADO Visit ID: [id number] 31y, F Weight: 61.2 kg Height/Length: 60 in BMI: 26.4 ALLERGIES: No Known Drug Allergy Given 13:06/30/2016 Kym Bourgeois RMarikaN. Medication Administered: ATIVAN [PO] (LORAZEPAM), Dose: 2 mg PO. Medication Ordered: Ativan PO 2 mg (HIGH ALERT MEDICATION, NOW). Given 13:06/30/2016 Kym Bourgeois, RMarikaN. Medication Administered: TORADOL [IM] (KETOROLAC TROMETHAMINE), Dose: 60 mg IM. Medication Ordered: Toradol IM 60 mg (NOW).
== END 2016-06-30 13:42 | disposition home or self-care (01) ==
LOC: ED SRH 12:04
DX: F41.1 Generalized anxiety disorder (principal); F17.200 Nicotine dependence, unspecified, uncomplicated

== ENCOUNTER 2016-09-13 18:46 | Emergency (ER) | payer OTHER ==
--- NOTE | 2016-09-13 20:08 | ED NURSING NOTES ---
Clinical Report - Nurses [facility] [address] [place] [address] 09/13/2016 18:47 Patient: MICHELLE HURTADO TRIAGE Triage time 19:Sep 13 2016. Acuity: LEVEL 3. Chief Complaint: IMPAIRED SPEECH. --19:35 Renee Knight R.N. 19:29 09/13/16. BP: 110/67. HR: 121. RR: 16. O2 saturation: 97%. Temp: 98.2 F. Pain level now: 09/01. --19:35 Renee Knight R.N. Weight: 56.6 kg stated. Height/Length: 60 inches Per Patient. BMI: 24.4. --19:34 Renee Knight R.N. Medications KlonoPIN Oral. Neurontin Oral 300 mg, 3x a day. SEROquel Oral 300 mg, at bedtime. --19:32 Renee Knight R.N. Medication/allergy information source: the patient. --19:35 Renee Knight R.N. Allergies No Known Drug Allergy. --19:32 Renee Knight R.N. History Arrived by private vehicle. Historian: patient. Accompanied by family and mother and father. This started unknown. Patient was last known well (yesterday). Onset. (today). Treatment [place]: None. PAST MEDICAL HX: Immunizations: up-to-date. Last normal menstrual period- about 2 ago. Denies current . SOCIAL HX: Current every day heavy tobacco smoker (cigarette)- less than 1 pack per day. No alcohol use or drug use. No infectious disease exposure. SELF HARM ASSESSMENT: A self harm assessment was performed. The patient answered "no" to the question "Do you have thoughts of harming or killing yourself?". FALL RISK ASSESSMENT: Fall risk assessment completed. No fall risk identified. NUTRITIONAL RISK ASSESSMENT: The nutritional risk assessment revealed no deficiencies. FUNCTIONAL ASSESSMENT: Functional assessment: no impairments noted. LEARNING NEEDS ASSESSMENT: The learning needs assessment revealed no barriers. ABUSE ASSESSMENT: Abuse assessment: The patient was asked "Do you feel safe in your home?". SKIN INTEGRITY ASSESSMENT: Skin integrity risk assessment completed. No skin integrity risk identified. --19:35 Renee Knight R.N. ( pt states that she went to the park and may have ate tree bark, pt slurring words, unsteady on her feet,). --19:38 Renee Knight R.N. PROBLEMS: Arthritis. Adverse Drug Reaction. Leukocytosis. Abnormal Liver Function Test. Cellulitis. Mental Illness. UTI - Urinary Tract Infection. Psychosis. Hypomagnesemia. Tonsillitis. Bipolar Disorder. Schizoaffective Disorder. Hep C treated with interferon. Substance Abuse. Hypoglycemia. Hypokalemia. . Spontaneous (Miscarriage). OB History. Dental Pain. Asthma. Anxiety Reaction. Sinusitis. Fever. Pharyngitis. Immunizations. LNMP - Last Normal Menstrual Period. --19:32 Renee Knight R.N. ADDITIONAL SURGERIES: Appendectomy. --19:33 Renee Knight R.N. Interventions ID band on patient. To room. --19:35 Renee Knight R.N. PHYSICAL ASSESSMENT Ambulatory to room. GENERAL / NEURO / PSYCH: Awake. Alert. Slurred speech. ( pt states that she is feeling dizzy). Pupillary exam: Right pupil 2mm and sluggishly reactive. Left pupil: 2mm and sluggishly reactive. HEENT: No facial asymmetry noted. RESPIRATORY: Respirations not labored. CVS: Capillary refill less than 2 seconds. SKIN: Skin is warm and dry. --19:37 Renee Knight R.N. NURSING PROGRESS NOTES Monitoring of patient in place. Patient gowned. Head of bed elevated. Patient identifiers checked. Call light placed in reach. Side rails up x 2. Bed placed in lowest position. Brakes of bed on. --19:39 Renee Knight R.N. ( patient was asked to give a urine sample and she got really upset and said she was leaving. Patient just jumped off bed and went running out of department with only a gown on. Mother and father at bedside collected clothing and shoes and indicated that they would bring her back in if she was willing. Mother states that this is not new behavior for patient.). --19:49 Renee Knight R.N. DISPOSITION / DISCHARGE Departure time: 19:50 Sep 13 2016. The patient left the Emergency Department without being seen by a physician; patient was unaccompanied. The patient appears to be alert, oriented x4 and uncooperative. She notified the ED staff prior to leaving the department and stated is leaving the ED (did not want to give urine sample). Notified the ED physician of patient departure. Prior to leaving the ED, she was advised to stay for completion of treatment and return if needed. Patient left without signing form prior to leaving. She left the Emergency Department ambulatory. --19:50 Renee Knight R.N. Locked/Released at 09/13/2016 22:45 by Renee Knight R.N.
--- NOTE | 2016-09-13 22:46 | ED MAR SUMMARY ---
..... Medication Administration Record [facility] [address], [place] [id number] Patient: MICHELLE HURTADO Visit ID: [id number] 31y, F Weight: 56.6 kg Height/Length: 60 in BMI: 24.4 ALLERGIES: No Known Drug Allergy
--- NOTE | 2016-09-13 22:46 | ED MED RECONCILIATION SUMMARY ---
Patient: MICHELLE HURTADO Medication Reconciliation Report [facility] VisitID: [id number] [address] [place] [address] 31y, F Registration Date/Time: 09/13/2016 Weight: 56.6 kg Height/Length: 60 in. BMI: 24.4 ALLERGIES: No Known Drug Allergy The patient's Home Medications are listed below: THE FOLLOWING MEDICATIONS NEED TO BE RECONCILED: KlonoPIN Oral Neurontin Oral 300 mg, 3x a day SEROquel Oral 300 mg, at bedtime The source(s) of the original Home Medication information: patient The following Medications were given to the patient in the Emergency Department: None. The following Medications were prescribed to the patient: None.
--- NOTE | 2016-09-13 22:46 | ED MAR SUMMARY ---
..... Medication Administration Record [address] [place], [place] [id number] Patient: MICHELLE HURTADO Visit ID: [id number] 31y, F Weight: 56.6 kg Height/Length: 60 in BMI: 24.4 ALLERGIES: No Known Drug Allergy
--- NOTE | 2016-09-13 22:46 | ED MED RECONCILIATION SUMMARY ---
Patient: MICHELLE HURTADO Medication Reconciliation Report [facility] VisitID: [id number] [address] [place] [address] 31y, F Registration Date/Time: 09/13/2016 Weight: 56.6 kg Height/Length: 60 in. BMI: 24.4 ALLERGIES: No Known Drug Allergy The patient's Home Medications are listed below: THE FOLLOWING MEDICATIONS NEED TO BE RECONCILED: KlonoPIN Oral Neurontin Oral 300 mg, 3x a day SEROquel Oral 300 mg, at bedtime The source(s) of the original Home Medication information: patient The following Medications were given to the patient in the Emergency Department: None. The following Medications were prescribed to the patient: None.
== END 2016-09-13 19:45 | disposition left against medical advice (07) ==
LOC: ED SRH 18:46
DX: Z53.21 Procedure and treatment not carried out due to patient leaving prior to being seen by health care provider (principal)